=== PATIENT | female | born 1940 | race Caucasian/White ===

== ENCOUNTER 2021-05-03 07:41 | Observation (INO) ==
--- NOTE | 2021-04-19 09:36 | PAT Medication Instructions ---
Medication Instructions Date of Service April 19, 2021 Home Medications L.acid-L.casei-B.bif-B.carolyn-FOS [Probiotic Blend] 1 cap PO QAM cholecalciferol (vitamin D3) [Vitamin D3] 25 mcg PO QAM cyanocobalamin (vitamin B-12) [Vitamin B-12] 1,000 mcg PO QAM levothyroxine 137 mcg PO QAM multivitamin 1 tab PO QAM omega-3 fatty acids [Fish Oil] 1,000 mg PO QAM vitamin E 400 unit PO QAM STOP taking 2 weeks before surgery (or as soon as possible if surgery is within 2 weeks) omega-3 fatty acids [Fish Oil] 1,000 mg PO QAM vitamin E 400 unit PO QAM DO NOT take the morning of surgery L.acid-L.casei-B.bif-B.carolyn-FOS [Probiotic Blend] 1 cap PO QAM cholecalciferol (vitamin D3) [Vitamin D3] 25 mcg PO QAM cyanocobalamin (vitamin B-12) [Vitamin B-12] 1,000 mcg PO QAM multivitamin 1 tab PO QAM Take morning of surgery With a small sip of water, OTHERWISE NOTHING TO EAT OR DRINK AFTER MIDNIGHT: levothyroxine 137 mcg PO QAM Other Notes If you have any questions please call us at [phone] or [phone] or [phone] or [phone]
--- NOTE | 2021-04-21 13:14 | Anesthesiology Consultation ---
Date of Service April 21, 2021 Assessment & Plan (1) Encounter for pre-operative examination: COVID screening: Per assessment on 04/21: Travel screen negative, no known COVID- 19 positive contacts or current COVID-19 related symptoms. Surgeon arranging preop COVID testing. Awaiting results. Patient not vaccinated and does not wear mask in public > will order cepheid for AM DOS. Chart Review Chart Review: Acceptable Risk for Surgery and Patient seen in Pre Admission Testing Teaching & Discussion Pre-Anesthesia Teaching/Discussion Notes: Instructed NPO after midnight before surgery,except medications with 15 cc of water. Medication instructions provided according to the PAT guidelines. History Surgery Operation Date: 05/03/21 08:50 Proposed Procedures p Left Total Knee Arthroplasty - Jasiel Chandler MD Height/Weight Height: 5 ft 4 in Weight: 86.4 kg Allergies Allergy/AdvReac Type Severity Reaction Status Date / Time soy Allergy Intermediate Diffuse Verified 04/19/21 09:36 rash Sulfa (Sulfonamide Allergy Unknown Unknown Verified 04/18/21 15:42 Antibiotics) Medications Home Medications Medication Instructions Recorded Confirmed Last Taken L.acidophil-L.casei-B.bifid-B.longum-FOS 1 cap PO QAM 04/18/21 04/18/21 Unknown 2 billion cell-50 mg capsule (Probiotic Blend) cholecalciferol (vitamin D3) 25 25 mcg PO QAM 04/18/21 04/18/21 Unknown mcg (1,000 unit) tablet (Vitamin D3) cyanocobalamin (vitamin B-12) 1,000 mcg PO QAM 04/18/21 04/18/21 Unknown 1,000 mcg tablet (Vitamin B-12) levothyroxine 137 mcg tablet 137 mcg PO QAM 04/18/21 04/18/21 Unknown multivitamin 1 tab PO QAM 04/18/21 04/18/21 Unknown omega-3 fatty acids 1,000 mg PO QAM 04/18/21 04/18/21 Unknown vitamin E 400 unit tablet 400 unit PO QAM 04/18/21 04/18/21 Unknown Past Medical History Medical History Hypothyroidism Exercise / Class Metabolic Activity II 4-5 Yardwork/Stairs/Walk up hill (one FS (no CP, no SOB)) Past Family History Family History Other No family history of adverse response to anesthesia Past Surgical History Surgical History History of bilateral cataract extraction History of breast biopsy Benign History of section x2 History of tooth extraction History of total left hip replacement Past Anesthesia History No Family Hx of Anesthesia Complications and Other (Pain with epidural/spinal placement for previous ) History of PONV No Hx of PONV and No Hx of Motion Sickness Social History Smoking Status: Never smoker Do You Dip or Chew Tobacco: No Hx Alcohol Use: No Hx Substance Use: No substance use type: does not use Review of Systems Patient denies chest pain, shortness of breath, dyspnea on exertion, fever, chills, cough, wheezing, palpitations. Physical Exam Vital Signs VITALS BP 130/78 P 75 TEMP 98.4 SP02 94%RA RESP 16 PHYSICAL Full cervical extension range of motion. Full TMJ range of motion. TMD 3 finger breaths Mallampati Score 2 Dentition: upper/lower partials Lungs: clear throughout to auscultation Cardiac: regular rate and rhythm, no murmurs noted Spine: normal Carotid arteries: negative bruit Extremities: no edema Lab Results Anesthesia Preop Results Results Anesthesia Widget: 2 WBC 9.31 K/uL (4.8-10.8) 04/21/21 Hgb 13.5 g/dL (12.0-16.0) 04/21/21 Hct 40.7 % (37-47) 04/21/21 Plt 374 K/uL (130-400) 04/21/21 Na 141 mmol/L (136-145) 04/21/21 K 4.1 mmol/L (3.5-5.1) 04/21/21 Cl 108 mmol/L (98-107) H 04/21/21 CO2 28 mmol/L (21-32) 04/21/21 BUN 15 mg/dl (7-18) 04/21/21 Creat 0.57 mg/dl (0.6-1.2) L 04/21/21 Glucose Level 92 mg/dl (70-99) 04/21/21 PT 10.3 Seconds (9.0-12.0) 04/21/21 PTT 24.2 Seconds (21.0-31.0) 04/21/21 INR 1.0 (0.9-1.1) 04/21/21 Blood Type O Negative 04/21/21 Antibody Screen NEGATIVE 04/21/21 Testing Electrocardiogram Date: 04/21/21 SR with first degree AVB at 75bpm. Otherwise normal ECG. No significant change compared to 06/05/2011 per inspector plumbing review. Chest X-Ray Date: 04/21/21 FINDINGS: Cardiac silhouette is upper limits of normal in size. No pneumothorax, pleural effusion, airspace consolidation or overt pulmonary edema. Degenerative changes of the shoulders and spine. Nipple shadow projects over the right lung base. Mild mid thoracic dextroscoliosis. IMPRESSION: No acute process.
[~2021-05-03 07:41] MED LIST: ACETAMINOPHEN 500 MG TAB PO SCH; BUPIVACAINE 0.25% 30 ML VIAL ONE; BUPIVACAINE 0.5 % 5 MG/1 ML PF 10ML VIAL ONE; BUPIVACAINE LIPOSOME/PF 266 MG, BUPIVACAINE/EPINEPHRINE 50 ML, SODIUM CHLORIDE 0.9% 30 ... INFIL SCH; FAMOTIDINE 20 MG TAB PO SCH; GABAPENTIN 300 MG CAP PO SCH; LR 500ML BOLUS, THEN 15ML/HR IV SCH; LR 60ML/HR IV SCH; METOCLOPRAMIDE HCL 10 MG TABLET PO SCH; TRANEXAMIC ACID 1,000 MG **IV Intra-op IV SCH; ceFAZolin 2000MG 2,000 MG/15 ML SYR IV SCH
--- NOTE | 2021-05-03 07:47 | History & Physical Bridge Note ---
Date of Service May 03, 2021 History & Physical Bridge Note I have examined the patient, reviewed the History & Physical and in the interval since the performance of the History & Physical I have noted the following changes of clinical significance: no changes noted
[2021-05-03] MEDS ORDERED: MIDAZOLAM HCL 1 MG/ML 2ML VIAL ONE (07:51)
[2021-05-03] MEDS ORDERED: fentaNYL citrate 100 MCG/2 ML VIAL ONE (07:52)
[2021-05-03] MEDS ORDERED: ePHEDrine sulfate 50 MG/ML AMP IV PRN (09:20)
[2021-05-03] MEDS ORDERED: ONDANSETRON INJ 2 MG/ML 2 ML VIAL IV PRN ×2 (09:20→14:54)
[2021-05-03] MEDS ORDERED: ATROPINE SULFATE 0.1 MG/ML 10ML SYR IV PRN (09:20)
[2021-05-03] MEDS ORDERED: BUPIVACAINE 0.25% 30 ML VIAL ONE (10:05)
[2021-05-03] MEDS ORDERED: LIDOCAINE 2% 2 ML VIAL/AMP(20MG/ML) INFIL ONE (10:05)
[2021-05-03] MEDS ORDERED: SODIUM CHLORIDE 0.9% PF 50 ML VIAL ONE (10:05)
[2021-05-03] MEDS ORDERED: EPINEPHrine INJ 1 MG/ML AMP ONE (10:05)
[2021-05-03] MEDS ORDERED: PROPOFOL IV EMULSION 10 MG/ML 20 ML VIAL IV ONE (10:05)
[2021-05-03] MEDS ORDERED: BUPIVACAINE LIPOSOME 1.3% 266 MG/20 ML VIAL ONE (10:05)
[2021-05-03] MEDS ORDERED: ONDANSETRON INJ 2 MG/ML 2 ML VIAL ONE (10:05)
[2021-05-03] MEDS ORDERED: ePHEDrine sulfate 50 MG/ML AMP ONE (10:34)
[2021-05-03] MEDS ORDERED: PHENYLEPHRINE 100MCG/ML 5ML SYR ONE (10:54)
--- NOTE | 2021-05-03 12:27 | Operative Report ---
Post Operative Report Pre & Post Diagnosis Operation Date: 05/03/21 09:40 Pre-Op Diagnosis: Left Knee Osteoarthritits, Left Knee Pain Post-Op Diagnosis: Left Knee Osteoarthritits, Left Knee Pain I identified the patient and participated in the time-out.: Yes Procedure Operation Date: 05/03/21 09:40 Actual Procedures p Left Total Knee Arthroplasty, Cemented(Left) - Jasiel Chandler MD Surgeon Jasiel Chandler MD Matrix Worker GAL Hooper Estimated Blood Loss 50 Findings Consistent with Post-Op Diagnosis Operative findings were advanced left knee DJD. She had a grade 4 [id number] disease in all 3 compartments. She had varus deformity to the knee. Osteophytes in all 3 compartments. Moderate-sized knee effusion. Some diffuse osteopenia. Fluids 1200 cc Specimens Left knee sent for pathology. Drains None. Anesthesia Type Spinal MAC Complications none Disposition Accompanied Patient To Recovery: No Indications Patient is 80-year-old female is had a several year history of increasing bilateral knee pain discomfort. The left knee has been bothering more than the right patient been through extensive conservative treatment provided elsewhere. She elected proceed with total knee arthroplasty on the left side as this 1 was more symptomatic. Description of Procedure Operative implants consist of: 1. Biomet Vanguard size 65 left posterior stabilized femoral component. 2. Biomet size 71 tibial tray. 3. 14 mm posterior stabilized polyethylene insert. 4. 28 x 8 all polypatella. The patient was taken the operating, identified, placed on the operating table supine position but a contractors were properly padded. IV antibiotics tried by anesthesia team. A spinal anesthetic and abductor canal block had provided in the holding area. Melgar catheter was placed in sterile fashion. A left thigh- high tourniquet was then placed in the left lower extremities and prepped and draped in usual sterile fashion. The left leg was elevated exsanguinated with use of an Esmarch and turns placed at 300 mmHg. An anterior approach left knee was then performed to longitudinal incision centered over the patella. Sharp dissection got through subcutaneous is down below the extensor mechanism. A medial parapatellar arthrotomy incision was made. Some subperiosteal dissection was carried out medially but the fat pad was resected from each patella tendon. Lateral patellofemoral ligament was released. Patella subluxated laterally and the knee was flexed. The osteophytes taken off distal femur. The ACL and PCL were then released from distal femur the tibia subluxated anteriorly. External tibial alignment jig was then placed in the interface the tibia and adjusted 14 mm medially. Proximal tibial cut was made remove about 2 to 3 mm of bone from most efficient aspect medial tibial plateau. This did take a fairly large piece off laterally. Some osteophytes were taken off medial and posterior medially. The tibia sized to a size 71. Attention drawn the femur. The distal femur during the sharp drill bit intramedullary canal was suction. A left 5 degree valgus cutting guide was placed. The distal femoral cutting block was pinned in place. Distal femoral cut was made to take an additional 3 mm of bone off distal femur. Femur was then sized to a size 65. The AP cutting block was pinned parallel to the epicondylar axis which was 5 degrees of external rotation. The anterior cut, anterior chamfer, posterior cut, posterior chamfer cuts were made. The box cutting guide was placed in just slight lateral box cut was made. The knee was flexed. The remnants of the medial and lateral menisci were excised. The osteophytes were taken off the posterior aspect of the femur. Trial femoral component was placed through the tibial tray was pinned in maximum external rotation and the drill and stem punch used to create defect in proximal tibia for the tibial tray. Knee was then trialed and the 14 mm insert fit most appropriately. Attention drawn the patella. Patella was cleaned of all soft tissues. Patella thickness measured 20 mm in thickness cut down 13. Was sized to a size 28 patella. The lug holes were drilled for the 28 patella. The lateral osteophyte was removed. Patella button was placed. The knee was taken through range of motion and the patella tracked nicely with no thumbs test. Attention was then drawn toward placing the permanent components. All trial components were removed. Bone plug was placed in the distal femur limit blood loss put a double batch Palacos G cement was mixed. A Biomet Vanguard size 65 left posterior stabilized femoral component, size 71 tibial tray, a 14 mm posterior stabilized polyethylene insert, and a 28 x 8 all polypatella then cemented in place. Knee was brought out in full extension total cement hardened. Final cement check was then performed. Pericapsular tis sues were injected with total 100 cc of combination of 20 cc of Exparel, 30 cc normal saline, 50 cc of quarter percent Marcaine with epinephrine. Patient did receive 1 g tranexamic acid per the turn was then let down for final turn time 60 minutes. Hemostasis assured use electrocautery. The wound was once again irrigated. The extensor mechanism was then repaired with a combination #1 PDS and #1 Vicryl suture in [id number] fashion. Extensor mechanism checked found to be intact with subcutaneous tissue then closed with 2 Dexon suture in a buried fashion skin was closed skin marilyn. Legs then cleaned dried and sterile dressing was Xeroform, 4 x 4's, sterile cast padding, Harrison bandage were applied. Patient then transferred to the recovery room in stable condition. Patient tolerated procedure well and there were no complications. Canelo Hooper, my physician food and nutrition services assistant, was present for the entire procedure. His assistance was essential and required for appropriate patient positioning, prepping and draping, surgical exposure, performing the technical details of the operation, placement the implants, closure of the wound, and placement of the sterile bandage. I attest to the content of the Intraoperative Record and any orders documented therein. Any exceptions are noted below.
--- NOTE | 2021-05-03 13:05 | XRay Report ---
LEFT KNEE 2 VIEWS History: Left total knee arthroplasty. Degenerative arthritis. Postop. FINDINGS: The patient is status post a left total knee arthroplasty. The hardware is intact. No fract ure or dislocation. Skin marilyn are in place. IMPRESSION: Left total knee arthroplasty. No evidence for hardware complication. ACT 112: Negative or not required by law. Electronically signed by: Matt Méndez M.D. 05/03/2021 1:04 PM
--- NOTE | 2021-05-03 13:51 | Anesthesiology Progress Note ---
Date of Service May 03, 2021 Anesthesia Post Procedure Vital Signs Vital Signs: Temp Pulse Pulse Resp BP BP Pulse Ox 05/03/21 13:40 70 14 99/48 L 95 05/03/21 13:25 71 14 105/46 L 95 05/03/21 13:10 36.4 C L 71 14 108/47 L 94 05/03/21 12:55 36.4 C L 70 16 105/48 L 94 05/03/21 12:45 36.4 C L 70 18 110/48 L 96 05/03/21 12:35 66 15 104/47 L 97 05/03/21 12:25 72 15 103/46 L 95 05/03/21 12:16 36.8 C 72 16 102/45 L 99 05/03/21 08:29 36.7 C 73 18 137/73 96 Pain Intensity Left Knee: Pain Intensity: 3 Transfer of Care Handoff Completed per policy Notes Mental Status: alert / awake / arousable and participated in evaluation Patient Amnestic to Procedure: Yes Nausea / Vomiting: adequately controlled Pain: adequately controlled Airway Patency, RR, SpO2: stable & adequate BP & HR: stable & adequate Hydration State: stable & adequate Neuraxial Anesthesia: was administered and sensory block is resolving Anesthetic Complications: no major complications apparent and Pt Satisfied with anesthetic care
[2021-05-03] MEDS ORDERED: HYDROmorphone INJ 0.5 MG/0.5 ML SYR IV PRN (14:54)
[2021-05-03] MEDS ORDERED: MAGNESIUM HYDROXIDE SUSP 30 ML UDC PO PRN (14:54)
[2021-05-03] MEDS ORDERED: METOCLOPRAMIDE HCL INJ 5 MG/ML 2 ML VIAL IV PRN (14:54)
[2021-05-03] MEDS ORDERED: bisacodyL 10 MG SUPP PR PRN (14:54)
[2021-05-03] MEDS ORDERED: NALOXONE HCL 0.4 MG/1 ML VIAL/CARP IV PRN (14:54)
[2021-05-03] MEDS ORDERED: traMADol HCL 50 MG TABLET PO PRN (14:54)
[2021-05-03] MEDS ORDERED: ALUMINUM/MAGNESIUM SUSP 30 ML UDC PO PRN (14:54)
[2021-05-03] MEDS: ACETAMINOPHEN 500 MG TAB PO SCH ×2 (15:50→22:03)
[2021-05-03] MEDS: SODIUM CHLORIDE 0.9% 1000ML 1,000 ML IV SCH (15:51)
[2021-05-03] MEDS: ASCORBIC ACID 500 MG TAB PO SCH (17:46)
[2021-05-03] MEDS: ceFAZolin 2000MG 2,000 MG/15 ML SYR IV SCH (17:47)
[2021-05-03] MEDS: KETOROLAC TROMETHAMINE 15 MG/ML VIAL IV SCH ×2 (17:47→22:03)
[2021-05-03] MEDS ORDERED: TRANEXAMIC ACID / 0.7% NACL 1,000 MG/100 ML BAG IV SCH (18:15)
--- NOTE | 2021-05-03 20:28 | Progress Notes ---
DATE OF SERVICE: 05/03/2021 SUBJECTIVE: A 80-year-old white female postop from a left knee replacement. She is doing well. [place] n is controlled. No chest pain or shortness of breath. Not feeling dizzy or lightheaded. OBJECTIVE: VITAL SIGNS: Temperature 36.3. Vital signs are stable. PHYSICAL EXAMINATION: GENERAL: Shows a pleasant elderly female. She is sitting up in bed, eating dinner and talking to he r . LUNGS: Clear to auscultation. HEART: Regular rate and rhythm. ABDOMEN: Soft, nontender, nondistended. EXTREMITIES: Grossly neurovascularly intact except as follows: Examination of the left knee and leg reveals the dressing to be clean, dry and intact. Leg is well aligned. She can dorsiflex and plant arflex her foot appropriately. NEUROLOGIC: She is neurologically intact. X-RAYS: X-rays of the left knee from recovery room are reviewed. She has a left cemented posterior s tabilized total knee arthroplasty. Components looked to be in good position. No signs of problems. ASSESSMENT: A 80-year-old white female postoperative from a left knee replacement, doing well. Pain is controlled. She is neurologically intact. PLAN: 1. DVT prophylaxis includes thigh-high TEDs, SCDs, and aspirin twice a day. 2. PT, OT, weightbear as tolerated. Left total knee protocol. 3. Pain control, doing well with current pain regimen. 4. IV antibiotics x24 hours. 5. Disposition: Plan to discharge to home with some home health likely tomorrow after morning therap y. Job ID: [id number]
[2021-05-03] MEDS: ASPIRIN 81 MG ECTAB PO SCH (20:33)
[2021-05-03] MEDS: DOCUSATE SODIUM 100 MG CAP PO SCH (20:34)
[2021-05-03] MEDS ORDERED: SENNA 8.6 MG TAB PO SCH (21:00)
[2021-05-04] MEDS: SODIUM CHLORIDE 0.9% 1000ML 1,000 ML IV SCH (01:30)
[2021-05-04] MEDS: ceFAZolin 2000MG 2,000 MG/15 ML SYR IV SCH (02:52)
[2021-05-04] MEDS: KETOROLAC TROMETHAMINE 15 MG/ML VIAL IV SCH ×2 (05:13→11:42)
[2021-05-04] MEDS: ACETAMINOPHEN 500 MG TAB PO SCH ×2 (05:14→14:48)
[2021-05-04 06:30] LABS: Hematocrit (blood only) 35.6 % (37-47); Hemoglobin 11.6 g/dL (12.0-16.0); Mean Corpuscular Hemoglobin 30.5 pg (25-34); Mean Corpuscular Hgb Conc 32.6 g/dL (32-36); Mean Corpuscular Volume 93.7 fL (80-100); Mean Platelet Volume 10.9 fL (7.4-10.4); Platelet Count 271 K/uL (130-400); RDW Coefficient of Variation 12.5 % (11.5-14.5); RDW Standard Deviation 42.6 fL (36.4-46.3); White Blood Count 10.77 K/uL (4.8-10.8)
[2021-05-04] MEDS ORDERED: LEVOTHYROXINE SODIUM 137 MCG TABLET PO SCH (06:30)
[2021-05-04 07:04] LABS: BUN Creatinine Ratio 23.2 (10-20); Calcium 8.4 mg/dl (8.5-10.1); Est GFR (African American) 102.2 ml/min; Est GFR (Non-African American) 88.2 ml/min; Potassium 4.6 mmol/L (3.5-5.1)
[2021-05-04] MEDS: DOCUSATE SODIUM 100 MG CAP PO SCH (08:37)
[2021-05-04] MEDS: ASPIRIN 81 MG ECTAB PO SCH (08:37)
[2021-05-04] MEDS: ASCORBIC ACID 500 MG TAB PO SCH (08:38)
[2021-05-04] MEDS: dexAMETHasone 10 MG in SYRINGE 0 ML IV SCH ×2 (08:38→08:46)
--- NOTE | 2021-05-04 08:39 | Progress Notes ---
DATE OF SERVICE: 05/04/2021. SUBJECTIVE: A 80-year-old white female postop day 1 from a left knee replacement. She is doing pret ty well. Had a pretty good night. Pain is reasonably well controlled. No chest pain or shortness o f breath. Not feeling dizzy or lightheaded. OBJECTIVE: VITAL SIGNS: Temperature is 36.4. Vital signs are stable. PHYSICAL EXAMINATION: GENERAL: A pleasant elderly female. She is sitting up on bed and looks pretty comfortable. EXTREMITIES: Examination of the left leg reveals the dressing to be clean, dry and intact. Patient dorsiflex and plantarflex her foot appropriately. She is neurologically intact. LABORATORY DATA: Hemoglobin 11.6. Hematocrit 35.6. Electrolytes are stable. ASSESSMENT: A 80-year-old female postoperative day 1 from left knee replacement, doing pretty well. Pain is controlled. She is neurologically intact. PLAN: 1. DVT prophylaxis include thigh-high TEDs, SCDs, and aspirin twice a day. 2. PT, OT, weightbear as tolerated. Left total knee protocol. 3. Pain control, doing pretty well with current pain regimen. 4. Disposition: Plan to discharge to home with some home health likely later today. Job ID: [id number]
[2021-05-04] MEDS ORDERED: OMEGA-3 (PURIFIED FISH OIL) 1 GM CAP PO SCH (09:00)
[2021-05-04] MEDS ORDERED: CYANOCOBALAMIN 500 MCG TABLET (VITAMIN B-12) PO SCH (09:00)
[2021-05-04] MEDS ORDERED: TOCOPHERYL, DL-ALPHA 400 UNITS 180 MG CAP PO SCH (09:00)
[2021-05-04] MEDS ORDERED: ADVANCED PROBIOTIC 1250 MG CAPSULE PO SCH (09:00)
[2021-05-04] MEDS ORDERED: MULTIVITAMIN TAB PO SCH ×2 (09:00)
[2021-05-04] MEDS ORDERED: CHOLECALCIFEROL 1,000 UNITS 25 MCG TAB PO SCH (09:00)
--- NOTE | 2021-05-10 06:28 | Discharge Summary ---
Date of Service May 10, 2021 Discharge Data Procedures Performed Operation Date: 05/03/21 09:40 Actual Procedures p Left Total Knee Arthroplasty, Cemented(Left) - Jasiel Chandler MD Hospital Course (1) Status post total left knee replacement: This is a 80 year old patient admitted on 05/03/21 and underwent total knee arthroplasty. She tolerated the procedure well and there were no complications. Transferred to the PACU post op and later to the orthopedic floor for further care. She was given ancef for antibiotic prophylaxis. She was also given LUIS stockings, SCDs, and aspirin for DVT prophylaxis. Hemoglobin, hematocrit, and vital signs were monitored during her hospital stay and remained stable. Did not require any blood transfusions. There were no complications during her hospital stay. By post op day #1 the patient was tolerating a regular diet, pain was reasonably controlled with oral pain medicine, and she was participating in physical therapy. On post op day #1 the patient was discharged home and set up with home health care. She was given printed discharge instructions including prescriptions for extra strength tylenol, aspirin, and tramadol. Continue physical therapy, weight bearing as tolerated. Continue LUIS stockings. Follow up approximately 2 weeks post op or sooner if there are problems or concerns. Coding Level of Care Code None Diagnoses Status post total left knee replacement Z96.652
== END 2021-05-04 16:18 | disposition home health service (06) ==
LOC: ASU 07:41 → 3E 07:41

== ENCOUNTER 2022-04-18 08:55 | Observation (INO) ==
--- NOTE | 2022-04-07 08:32 | History & Physical Report ---
Date of Service April 07, 2022 date of surgery: 04/18/22 Procedure: Right Total Knee Arthroplasty Surgeon: Jason Perez Assessment & Plan (1) Arthritis of right knee: Plan: Further care discussed with patient and at this point in time has failed conservative measures and would like to proceed with a right total knee replacement. Plan on discharge will be home with home health physical therapy. DVT prophylaxiswith TEDs, SCDs and will also place on aspirin 81 mg p.o. b.i.d. for a month postop. Patient will have follow up appointment in our office two weeks post op for staple/suture removal and re-evaluation. Patient otherwise has no other questions or concerns. The risks and benefits have been discussed including, but not limited to, risk of infection, nerve injury, stiffness, loss of motion, failure to improve, etc. Reasonable outcomes and options of treatment were discussed. An explanation of appropriate alternatives to the procedure that may be advantageous were discussed and their risks and benefits, as well as the risks and benefits of not proceeding with treatment. I offered to answer any additional inquiries concerning the treatment involved. All the patient's questions were answered. The patient is agreeable, understanding of the treatment plan and alternatives, and wishes to proceed with the treatment plan. History of Present Illness Chief Complaint: Right knee pain Primary Care Provider: Jasiel Hu is a 81 year old female who complains of right knee pain, presents for pre-op evaluation prior to a right total knee replacement by Dr Perez at [facility]. she has complaints of pain and stiffness in the right knee. her left knee has been replaced by Dr Chandler. currently the patient states that the symptoms are moderate-severe and is affecting her ADLs. The pain is described as aching, sharp and throbbing. Her symptoms are aggravated by ascending stairs, daily activities, first steps while awake walking. Prior NSAIDs include IBU and Aleve. she has been treated with injections in the past without much relief. Allergies Allergy/AdvReac Type Severity Reaction Status Date / Time soy Allergy Intermediate Diffuse Verified 04/06/22 16:22 rash Sulfa (Sulfonamide Allergy Unknown Unknown Verified 04/06/22 16:22 Antibiotics) Home Medications Medication Instructions Recorded Confirmed Type L.acidophil-L.casei-B.bifid-B.longum-FOS 1 cap PO QAM 04/18/21 04/06/22 History 2 billion cell-50 mg capsule (Probiotic Blend) cholecalciferol (vitamin D3) 25 25 mcg PO QAM 04/18/21 04/06/22 History mcg (1,000 unit) tablet (Vitamin D3) cyanocobalamin (vitamin B-12) 1,000 mcg PO QAM 04/18/21 04/06/22 History 1,000 mcg tablet (Vitamin B-12) levothyroxine 137 mcg tablet 137 mcg PO QAM 04/18/21 04/06/22 History multivitamin 1 tab PO QAM 04/18/21 04/06/22 History omega-3 fatty acids 1,000 mg PO QAM 04/18/21 04/06/22 History vitamin E 400 unit tablet 400 unit PO QAM 04/18/21 04/06/22 History Arturo Manjarrez #1 ea 05/19/21 04/06/22 Rx Past Med/Surg History Medical History Hypothyroidism Osteoarthritis Surgical History History of bilateral cataract extraction History of breast biopsy Benign History of section x2 History of tooth extraction History of total left hip replacement History of total left knee replacement (TKR) Family History Other No family history of adverse response to anesthesia Social History Smoking Status: Never smoker Second Hand Exposure: No; Hx Alcohol Use: No Hx Substance Use: No Preferred Language: Malay Communication Ability: Effective Robotics Engineer Required: No Beliefs That Will Affect Care: None marital status: Current Living Situation: Spouse Feels Safe at Home: Yes Assistive Devices: Denture - Upper, Denture - Lower and Glasses Review of Systems Review of Systems: All systems reviewed & are unremarkable except as noted in HPI & below Constitutional: no fever, no chills and no sweats Respiratory: no cough and no dyspnea Cardiovascular: no chest pain, no dyspnea and no orthopnea Gastrointestinal: no abdominal pain, no nausea and no vomiting Musculoskeletal: as per Subjective / HPI Physical Exam Physical Exam: HT: 5ft 4in WT: 77.1kg Constitutional: WD/WN, vitals as above no acute distress Respiratory: normal respiratory effort, lungs clear to auscultation no respiratory distress, no labored breathing and does not use accessory muscles Cardiovascular: RRR, no murmur, no edema Gastrointestinal (Abdomen): normal bowel sounds, soft, nontender, no hepatospl enomegaly Musculoskeletal: Knee: + knee abnormal to inspection (RIGHT KNEE), + effusion (+1 effusion), + limited ROM of knee (ROM 0/3/110), + knee ROM with crepitation, + joint line tenderness (medial joint line) and + Epifanio's sign positive; no deformity, no skin erythema, no ecchymosis, no valgus laxity, no varus laxity, anterior drawer test negative, Celeste's sign negative and pivot shift test negative Results & Data Results & Data ([facility]) Diagnostic Findings Right Knee X-ray: Right knee series showing advanced degenerative changes to the right knee, narrowing of the medial compartment and patello-femoral joint with patellar spurring noted, findings showing joint space narrowing of the medial compartment and patello-femoral joint, osteophyte formation and subchondral sclerosis noted. overall varus alignment. no acute bony pathology noted.
--- NOTE | 2022-04-07 09:35 | PAT Medication Instructions ---
Medication Instructions Date of Service April 07, 2022 Home Medications Medication Instructions Recorded Arturo Manjarrez #1 ea 05/19/21 L.acidophil-L.casei-B.bifid-B.longum-FOS 2 billion cell-50 mg capsule (Probiotic Blend) 1 cap PO QAM cholecalciferol (vitamin D3) 25 mcg (1,000 unit) tablet (Vitamin D3) 25 mcg PO QAM cyanocobalamin (vitamin B-12) 1,000 mcg tablet (Vitamin B-12) 1,000 mcg PO QAM levothyroxine 137 mcg tablet 137 mcg PO QAM multivitamin 1 tab PO QAM omega-3 fatty acids 1,000 mg PO QAM vitamin E 400 unit tablet 400 unit PO QAM STOP taking 2 weeks before surgery (or as soon as possible if surgery is within 2 weeks) omega-3 fatty acids 1,000 mg PO QAM vitamin E 400 unit tablet 400 unit PO QAM DO NOT take the morning of surgery L.acidophil-L.casei-B.bifid-B.longum-FOS 2 billion cell-50 mg capsule (Probiotic Blend) 1 cap PO QAM cholecalciferol (vitamin D3) 25 mcg (1,000 unit) tablet (Vitamin D3) 25 mcg PO QAM cyanocobalamin (vitamin B-12) 1,000 mcg tablet (Vitamin B-12) 1,000 mcg PO QAM multivitamin 1 tab PO QAM Take morning of surgery With a small sip of water, OTHERWISE NOTHING TO EAT OR DRINK AFTER MIDNIGHT: levothyroxine 137 mcg tablet 137 mcg PO QAM Other Notes If you have any questions please call us at [phone] or [phone] or [phone] or [phone]
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
[~2022-04-18 08:55] MED LIST changes: -BUPIVACAINE 0.25% 30 ML VIAL ONE; -BUPIVACAINE LIPOSOME/PF 266 MG, BUPIVACAINE/EPINEPHRINE 50 ML, SODIUM CHLORIDE 0.9% 30 ... INFIL SCH; +CeleBREX 200 MG CAP PO SCH; -LR 60ML/HR IV SCH; +ROPIVACAINE 0.5% 5 MG/ML 30 ML VIAL ONE; +ROPIVACAINE 0.5% HCL/PF 150 MG, BUPIVACAINE 0.75% MPF 20 ML, EPINEPHrine 30MG/30ML (OR ... INFIL SCH; +TRANEXAMIC ACID 1,000 MG **IV Pre-op IV SCH; +dexAMETHasone 4 MG TAB PO SCH
[2022-04-18] MEDS ORDERED: PHENYLEPHRINE 100MCG/ML 5ML SYR ONE (09:54)
[2022-04-18] MEDS ORDERED: ePHEDrine sulfate 50 MG/ML AMP ONE (09:54)
[2022-04-18] MEDS ORDERED: LIDOCAINE 2% MPF LOCAL 5 ML VIAL INFIL ONE (09:54)
[2022-04-18] MEDS ORDERED: MIDAZOLAM HCL 1 MG/ML 2ML VIAL ONE (09:54)
[2022-04-18] MEDS ORDERED: fentaNYL citrate 100 MCG/2 ML VIAL ONE (09:54)
[2022-04-18] MEDS ORDERED: PROPOFOL IV EMULSION 10 MG/ML 20 ML VIAL IV ONE (09:54)
[2022-04-18] MEDS ORDERED: ATROPINE SULFATE 0.1 MG/ML 10ML SYR IV PRN (10:41)
[2022-04-18] MEDS ORDERED: ONDANSETRON INJ 2 MG/ML 2 ML VIAL IV PRN ×2 (10:41→16:10)
[2022-04-18] MEDS ORDERED: fentaNYL citrate 100 MCG/2 ML VIAL IV PRN (10:41)
[2022-04-18] MEDS ORDERED: ePHEDrine sulfate 50 MG/ML AMP IV PRN (10:41)
--- NOTE | 2022-04-18 10:53 | History & Physical Bridge Note ---
Date of Service April 18, 2022 History & Physical Bridge Note I have examined the patient, reviewed the History & Physical and in the interval since the performance of the History & Physical I have noted the following changes of clinical significance: no changes noted
[2022-04-18] MEDS ORDERED: ORTHO JOINT ANESTHETIC ONE (12:17)
--- NOTE | 2022-04-18 13:21 | Operative Report ---
Post Operative Report Pre & Post Diagnosis Operation Date: 04/18/22 11:30 Pre-Op Diagnosis: Unilateral Primary Osteoarthritis, Right Knee Post-Op Diagnosis: Unilateral Primary Osteoarthritis, Right Knee I identified the patient and participated in the time-out.: Yes Procedure Operation Date: 04/18/22 11:30 Actual Procedures p Right Total Knee Arthroplasty(Right utilizing [employer] 2 long block total knee arthroplasty size femur 5 right 4 tibia 10 polytwenty 9 oval patella - Jason Perez DO Surgeon Jason Perez DO [employer] Technician Jose Manuel RAZA Estimated Blood Loss 5 Findings Consistent with Post-Op Diagnosis Patient presents with severe end-stage tricompartmental degenerative joint disease right knee varus alignment with [id number] eburnated bone marginal osteophyte subchondral sclerosis and moderate to large effusion Specimens Bone and cartilage Drains Medium bore Hemovac Anesthesia Type MAC Spinal Regional Complications none Disposition Accompanied Patient To Recovery: No Disposition: Recovery Room Indications Patient presents for right total knee arthroplasty for failed attempted conservative management physical therapy anti-inflammatories relative rest activity modification corticosteroid injection viscosupplementation above intraoperative findings were noted. Description of Procedure After proper prepping and draping of the Right lower extremity anterior midline incision was made over the region of the extensor extensor mechanism after meticulous hemostasis was obtained and maintained in subcutaneous tissues a medial parapatellar incision was made The patella was subluxed lateralward the medial lateral gutter were cleaned from any hypertrophic synovitis and scar tissue of the distal femoral block was placed and the distal femoral osteotomy cut was made subsequently the chamfers anterior and posterior osteotomy cuts were made utilizing the 4-in-1 block the tibia was subsequently subluxed anteriorward medial and ateral meniscal remnants were excised in their entirety remnants of the anterior and posterior cruciate ligaments were excised in their entirety excellent exposure of the proximal tibia was obtained the tibial osteotomy guide was placed on the proximal tibial osteotomy cut was made once again the knee was irrigated with copious amounts of sterile saline solution the patella was subsequently everted lateralward thickened scar tissue around the patella was removed the patella was subsequently cut utilizing a freehand technique and was drilled prepared for final preparation and placement of patella socially flexion-extension gaps were checked and the equal and symmetric trials were placed to the appropriate femoral and tibial trials with poly-spacer being placed for equal flexion and extension gaps and full range of motion including extension to 0 and flexion to 140 the trial components after having been taken to recovery range of motion was subsequently removed meticulous hemostasis was obtained and maintained subsequently a knee block injection of joint cocktail including ropivacaine 0.5% 150 mg. Bupivacaine 0.5% epinephrine 1-200,030 mL's toradol 30 mg dexamethasone 4 mg ketamine 10 mg clonidine 100 micrograms normal saline solution 30 mg was infiltrated into the soft tissues of the posterior knee medial lateral gutters and periosteal synovium special attention was paid to protect neurovascular structures at all times subsequently trial components having been removed the knee was irrigated with sterile saline solution. debris was removed the proximal tibia was subsequently prepared and was made ready for the placement of the tibial component tibial component was also cemented and tamped into position the femoral component was subsequently placed and cemented in the position the patellar component was subsequently cemented in position because hemostasis once again obtained and maintained wound having been thoroughly irrigated with debridement and debridement lavage was performed as well as a medial parapatellar incision closed with #1 Vicryl in interrupted fashion subcutaneous was closed with #2 Vicryl skin was closed with skin clips. PA-C was necessary for prepping and drapping as well as wound closure of deep fascia Sub cutaneous tissue and skin and was necessary for the case. A sterile compressive dressing was placed patient was taken to recovery in stable condition of report dictated by Chris I attest to the content of the Intraoperative Record and any orders documented therein. Any exceptions are noted below.Due to the complex nature of the procedure, the entire surgery was performed with the operational assistance of Jose Manuel RAZA. The assistant counsel, under direct supervision, was involved in the actual performance of all aspects of the surgical procedure including hemostasis, tissue retraction and incision, instrument management, patient posit ioning, and wound closure. I attest to the content of the Intraoperative Record and any orders documented therein. Any exceptions are noted below.
--- NOTE | 2022-04-18 14:40 | XRay Report ---
XR knee RT 1 or 2V routine CLINICAL HISTORY: Surgical Post Op TECHNIQUE: 2 views of the right knee were obtained. Comparison: None available at the time of this dictation. FINDINGS: Patient is status post total knee arthroplasty with expected postsurgical changes including soft tiss ue swelling and subcutaneous emphysema. No periarticular lucency or hardware fracture is seen. IMPRESSION: Expected postoperative appearance status post placement of total knee arthroplasty. ACT 112: Negative or not required by law. Electronically signed by: Killian Milton M.D. 04/18/2022 2:38 PM
--- NOTE | 2022-04-18 15:12 | Anesthesiology Progress Note ---
Date of Service April 18, 2022 Anesthesia Post Procedure Vital Signs Vital Signs: Temp Pulse Pulse Resp BP Pulse Ox 04/18/22 15:00 36.6 C 69 13 97/51 L 95 04/18/22 14:50 36.6 C 71 15 105/62 96 04/18/22 14:40 36.6 C 70 20 109/51 L 95 04/18/22 14:30 68 13 107/50 L 98 04/18/22 14:20 68 13 101/52 L 97 04/18/22 14:10 36.7 C 68 18 105/57 L 98 04/18/22 14:02 36.7 C 73 16 103/50 L 96 04/18/22 09:44 36.5 C 74 20 133/73 96 Transfer of Care Handoff Completed per policy Notes Mental Status: alert / awake / arousable and participated in evaluation Patient Amnestic to Procedure: Yes Nausea / Vomiting: adequately controlled Pain: adequately controlled Airway Patency, RR, SpO2: stable & adequate BP & HR: stable & adequate Hydration State: stable & adequate Neuraxial Anesthesia: was administered and sensory block is resolving Anesthetic Complications: no major complications apparent and Pt Satisfied with anesthetic care Notes: BP prior to discharge 102/49. Patient feeling well with no complaints.
[2022-04-18] MEDS ORDERED: NALOXONE HCL 0.4 MG/1 ML VIAL/CARP IV PRN (16:10)
[2022-04-18] MEDS ORDERED: MAGNESIUM HYDROXIDE SUSP 30 ML UDC PO PRN (16:10)
[2022-04-18] MEDS ORDERED: HYDROmorphone INJ 0.5 MG/0.5 ML SYR IV PRN (16:10)
[2022-04-18] MEDS ORDERED: bisacodyL 10 MG SUPP PR PRN (16:10)
[2022-04-18] MEDS: SODIUM CHLORIDE 0.9% 1000ML 1,000 ML IV SCH (16:36)
[2022-04-18] MEDS: ceFAZolin 2000MG 2,000 MG/15 ML SYR IV SCH (20:11)
[2022-04-18] MEDS: ASPIRIN 81 MG ECTAB PO SCH (20:43)
[2022-04-18] MEDS: DOCUSATE SODIUM 100 MG CAP PO SCH (20:43)
[2022-04-18] MEDS ORDERED: SENNA 8.6 MG TAB PO SCH (21:00)
[2022-04-18] MEDS: ACETAMINOPHEN 500 MG TAB PO SCH (21:32)
[2022-04-19] MEDS: ceFAZolin 2000MG 2,000 MG/15 ML SYR IV SCH (04:40)
[2022-04-19] MEDS: SODIUM CHLORIDE 0.9% 1000ML 1,000 ML IV SCH (05:29)
[2022-04-19] MEDS: ACETAMINOPHEN 500 MG TAB PO SCH (06:00)
[2022-04-19] MEDS ORDERED: LEVOTHYROXINE SODIUM 137 MCG TABLET PO SCH (06:30)
[2022-04-19] MEDS ORDERED: CYANOCOBALAMIN (B-12) 500 MCG TABLET PO SCH (09:00)
[2022-04-19] MEDS ORDERED: CHOLECALCIFEROL 1,000 UNITS 25 MCG TAB PO SCH (09:00)
[2022-04-19] MEDS ORDERED: ADVANCED PROBIOTIC 1250 MG CAPSULE PO SCH (09:00)
[2022-04-19] MEDS ORDERED: TOCOPHERYL, DL-ALPHA 400 UNITS 180 MG CAP PO SCH (09:00)
[2022-04-19] MEDS ORDERED: MULTIVITAMIN TAB PO SCH (09:00)
[2022-04-19] MEDS: DOCUSATE SODIUM 100 MG CAP PO SCH (09:50)
[2022-04-19] MEDS: ASPIRIN 81 MG ECTAB PO SCH (09:50)
[2022-04-19] MEDS: oxyCODONE HCL IR 5 MG TAB (IMMEDIATE RELEASE) PO PRN ×2 (09:56→14:01)
--- NOTE | 2022-04-19 09:56 | Orthopedic Progress Note ---
Date of Service April 19, 2022 Assessment & Plan (1) Arthritis of right knee: Plan: POD 1 s/p Right TKA PT/OT protocols. WBAT. DVT prophylaxis - ASA po bid, SCD's, LUIS's Pain management as written. DC planning - Home with services. Admission and Anticipated Discharge Date Admission Date: April 18, 2022 Subjective POD 1 Pt sitting in chair at bedside. No complaints. Pain controlled. Denies SOB,CP,LH. She is hoping to go home today. Physical Exam Physical Exam: Dressings are C/D/I. Calves soft, NT. NV intact. Toes mobile. Good DF/PF of right foot. Hemovac drainage 190ml from previous shift. Results & Data ([facility]) Vital Signs (Past 12 Hours) Vital Signs Temp Pulse Resp BP BP Pulse Ox O2 Del Method 04/19/22 08:14 36.3 C L 58 L 16 129/63 95 Room Air 04/19/22 03:30 36.6 C 65 16 112/66 92 Room Air 04/18/22 23:10 36.7 C 67 16 129/71 94 Room Air
[2022-04-19 10:08] LABS: Hematocrit (blood only) 34.4 % (34.1-44.9); Hemoglobin 11.7 g/dl (12.0-16.0); Mean Corpuscular Hemoglobin 30.7 pg (25.0-34.0); Mean Corpuscular Volume 90.3 fL (80.0-100.0); Mean Platelet Volume 11.1 fL (9.4-12.3); Platelet Count 292 K/uL (130-400); RDW Coefficient of Variation 12.5 % (11.5-14.5); RDW Standard Deviation 41.1 fL (36.4-46.3); Red Blood Count 3.81 M/uL (3.93-5.22); White Blood Count 14.85 K/ul (4.8-10.8)
[2022-04-19 10:35] LABS: BUN Creatinine Ratio 27.4 (10-20); Creatinine Clr Calc Pharmacy 62.2 ml/min; Est GFR (African American) 90.2 ml/min; Est GFR (Non-African American) 77.8 ml/min; Potassium 4.1 mmol/L (3.5-5.1)
== END 2022-04-19 14:16 | disposition home health service (06) ==
LOC: ASU 08:55 → 3W 08:55

== ENCOUNTER 2025-09-21 11:26 | Inpatient (IN) ==
[2025-09-21 12:29] LABS: Hematocrit (blood only) 29.0 % (37.0-47.0); Hemoglobin 10.1 g/dL (12.0-16.0); Mean Corpuscular Hemoglobin 35.9 pg (25.0-34.0); Mean Corpuscular Volume 103.2 fL (80.0-100.0); Platelet Count 415 K/uL (130-400); RDW Standard Deviation 54.1 fL (36.4-46.3); Red Blood Count 2.81 M/uL (4.20-5.40); White Blood Count 11.77 K/ul (4.8-10.8)
[2025-09-21 12:44] LABS: Anion Gap 9 (3-11); Blood Urea Nitrogen 25 mg/dl (6-23); Calcium 9.2 mg/dl (8.6-10.3); Carbon Dioxide 25 mmol/L (21-32); Chloride 102 mmol/L (98-107); Creatinine Clr Calc Pharmacy 38.9 ml/min; Glucose 141 mg/dl (70-99(Fasting)); Potassium 3.8 mmol/L (3.5-5.1); Sodium 136 mmol/L (136-145)
[2025-09-21 12:47] LABS: Alanine Aminotransferase 38 U/L (7-52); Albumin Globulin Ratio 1.1 (0.9-2); Albumin Level 3.8 gm/dl (3.4-5.0); Alkaline Phosphatase 41 U/L (34-104); Bilirubin,Total 1.2 mg/dl (0.2-1.0); Globulin 3.5 gm/dl (2.5-4.0); Lipase < 3 U/L (11-82); Magnesium 2.1 mg/dl (1.7-2.4); Total Protein 7.3 gm/dl (6.0-8.3)
[2025-09-21 12:56] LABS: Immature Granulocytes # (auto) 0.35 K/uL (0.01-0.20); Immature Granulocytes % (auto) 3.0 %; Toxic Vacuolation 3+
[2025-09-21 12:59] LABS: Thyroid Stimulating Hormone 0.182 uIu/ml (0.300-4.500)
[2025-09-21] MEDS: CEFEPIME 2000MG 2,000 MG/20 ML SYR IV STA (13:06)
[2025-09-21 13:07] LABS: INR 1.2 (0.9-1.1); Prothrombin Time 12.5 Seconds (9.0-12.0)
--- NOTE | 2025-09-21 13:07 | XRay Report ---
RIGHT KNEE 2 VIEWS CLINICAL HISTORY: Trauma. FINDINGS: AP and crosstable lateral views of the right knee are compared to study dated 04/18/2022. Th e skeletal structures are osteopenic. No fracture is seen. A right knee arthroplasty is in near anato flor alignment. There has been undersurface remodeling of the patella. No periprosthetic lucency is id entified. There is a joint effusion. The overlying soft tissues are normal as imaged. Atherosclerotic calcification is seen in the popliteal artery. IMPRESSION: 1. Joint effusion with no acute bony abnormality identified. 2. A right knee arthroplasty is in near anatomic alignment. Electronically signed by: Marvel Osborne M.D. 09/21/2025 1:06 PM
[2025-09-21] MEDS: SODIUM CHLORIDE 0.9% 1,000 ML IV SCH ×2 (13:12→18:48)
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
--- NOTE | 2025-09-21 13:24 | XRay Report ---
XR chest 1V portable CLINICAL HISTORY: Trauma. COMPARISON STUDY: PET/CT June 10, 2025. Chest radiograph July 22, 2025. FINDINGS: Diffuse skeletal metastases are again noted. Skin folds project over the left chest. There is no pneumothorax or pleural effusion. Elevation of the right hemidiaphragm is unchanged. No consoli dation to suggest pneumonia. The appearance of the chest has not significantly changed. Old right cla vicular fracture. IMPRESSION: 1. No significant change in appearance of the chest. No acute findings. 2. Redemonstration of skeletal metastases. ACT 112: Negative or not required by law. Electronically signed by: Ricardo Carey M.D. 09/21/2025 1:22 PM
[2025-09-21 13:34] LABS: T4 Free Thyroxine 1.84 ng/dl (0.61-1.60)
--- NOTE | 2025-09-21 13:39 | CT Scan Report ---
CT SCAN OF THE CERVICAL SPINE CLINICAL HISTORY: Fall. Breast cancer. COMPARISON STUDY: PET/CT dated 06/10/2025 TECHNIQUE: CT scan of the cervical spine is performed from the skull base to the upper thoracic spine . Images are reviewed in the axial, sagittal, and coronal planes. IV contrast was not administered fo r this examination. A dose lowering technique was utilized adhering to the principles of ALARA. FINDINGS: Skeletal structures: The skeletal structures are osteopenic. There is no evidence of acute fracture o r subluxation involving the cervical spine. A chronic compression deformity of C3 is unchanged. Verte bral body height is otherwise maintained throughout the cervical spine. Alignment is preserved. Again seen is evidence of multifocal osteoblastic metastatic disease. Anterior osteophytes are seen throu ghout. The odontoid process and lateral masses are intact. The atlantoaxial articulation is preserved noting productive degenerative change. The cervical spinous processes appear intact. There are chron ic nonunited spinous process fractures of T1 and T2. There is mild multilevel facet arthropathy. Intervertebral discs: There is severe disc space narrowing at C6-C7. Mild or moderate disc space narr owing is seen at the remaining cervical levels. Central canal: A posterior disc osteophyte complex at C6-C7 may contribute to acquired compromise of the central canal. Soft tissues: The prevertebral and paraspinous soft tissues are within normal limits. Soft tissue nod ularity in the left posterior neck is similar to the prior PET/CT. Calvarium: The visualized calvarium at the skull base appears intact. Metastatic disease is seen invo lving the clivus and the occipital bone. Brain parenchyma: Partially visualized brain parenchyma at the skull base is within normal limits. Sinuses and mastoids: The visualized paranasal sinuses are clear. The mastoid air cells are well pneu matized. Lung apices: Clear as visualized. IMPRESSION: 1. There is no evidence of acute fracture or subluxation involving the cervical spine. 2. 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 3. There is a chronic compression deformity of C3, as well as chronic nonunited spinous process fract ures of T1 and T2. 4. Additional findings as above. ACT 112: Negative or not required by law. Electronically signed by: Marvel Osborne M.D. 09/21/2025 1:36 PM
--- NOTE | 2025-09-21 14:12 | CT Scan Report ---
CT SCAN OF THE BRAIN WITHOUT IV CONTRAST CLINICAL HISTORY: Fall. COMPARISON STUDY: Head CT January 06, 2025. TECHNIQUE: Unenhanced axial CT scan of the brain was performed from the vertex to the skull base. A dose lowering technique was utilized adhering to the principles of ALARA. CT DOSE: 959.31 mGy.cm FINDINGS: Brain parenchyma: No acute intracranial hemorrhage, midline shift or mass effect is present. Hodges-whi te matter differentiation is preserved. There are no extra-axial fluid collections. There are no find ings to suggest acute dural sinus thrombosis or acute territorial infarct. Ventricles, sulci, cisterns: There is no hydrocephalus. The basal cisterns are patent. Calvarium: There are no calvarial fractures. Numerous calvarial lesions are again noted. Sinuses and mastoids: The visualized paranasal sinuses are clear. The mastoid air cells are well pneu matized. Orbits: The bony orbits are grossly intact. IMPRESSION: 1. No acute intracranial findings. 2. No calvarial fractures. Redemonstration of calvarial metastases. ACT 112: Negative or not required by law. Electronically signed by: Ricardo Carey M.D. 09/21/2025 2:11 PM
--- NOTE | 2025-09-21 14:23 | Emergency Department Note ---
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 the popliteal artery. IMPRESSION: 1. Joint effusion with no acute bony abnormality identified. 2. A right knee arthroplasty is in near anatomic alignment. Electronically signed by: Marvel Osborne M.D. 09/21/2025 1:[address] 09/21/25 12:02 CT SCAN OF THE CERVICAL SPINE CLINICAL HISTORY: Fall. Breast cancer. COMPARISON STUDY: PET/CT dated 06/10/2025 TECHNIQUE: CT scan of the cervical spine is performed from the skull base to the upper thoracic spine. Images are reviewed in the axial, sagittal, and coronal planes. IV contrast was not administered for this examination. A dose lowering technique was utilized adhering to the principles of ALARA. FINDINGS: Skeletal structures: The skeletal structures are osteopenic. There is no evidence of acute fracture or subluxation involving the cervical spine. A chronic compression deformity of C3 is unchanged. Vertebral body height is otherwise maintained throughout the cervical spine. Alignment is preserved. Again seen is evidence of multifocal osteoblastic metastatic disease. Anterior osteophytes are seen throughout. The odontoid process and lateral masses are intact. The atlantoaxial articulation is preserved noting productive degenerative change. The cervical spinous processes appear intact. There are chronic nonunited spinous process fractures of T1 and T2. There is mild multilevel facet arthropathy. Intervertebral discs: There is severe disc space narrowing at C6-C7. Mild or moderate disc space narrowing is seen at the remaining cervical levels. Central canal: A posterior disc osteophyte complex at C6-C7 may contribute to acquired compromise of the central canal. Soft tissues: The prevertebral and paraspinous soft tissues are within normal limits. Soft tissue nodularity in the left posterior neck is similar to the prior PET/CT. Calvarium: The visualized calvarium at the skull base appears intact. Metastatic disease is seen involving the clivus and the occipital bone. Brain parenchyma: Partially visualized brain parenchyma at the skull base is within normal limits. Sinuses and mastoids: The visualized paranasal sinuses are clear. The mastoid air cells are well pneumatized. Lung apices: Clear as visualized. IMPRESSION: 1. There is no evidence of acute fracture or subluxation involving the cervical spine. 2. 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 3. There is a chronic compression deformity of C3, as well as chronic nonunited spinous process fractures of T1 and T2. 4. Additional findings as above. ACT 112: Negative or not required by law. Electronically signed by: Marvel Osborne M.D. 09/21/2025 1:36 PM Chest X-Ray 09/21/25 12:02 XR chest 1V portable CLINICAL HISTORY: Trauma. COMPARISON STUDY: PET/CT June 10, 2025. Chest radiograph July 22, 2025. FINDINGS: Diffuse skeletal metastases are again noted. Skin folds project over the left chest. There is no pneumothorax or pleural effusion. Elevation of the right hemidiaphragm is unchanged. No consolidation to suggest pneumonia. The appearance of the chest has not significantly changed. Old right clavicular fracture. IMPRESSION: 1. No significant change in appearance of the chest. No acute findings. 2. Redemonstration of skeletal metastases. ACT 112: Negative or not required by law. Electronically signed by: Ricardo Carey M.D. 09/21/2025 1:22 PM Pelvis X-Ray 09/21/25 12:48 XR pelvis 1-2V routine CLINICAL HISTORY: TRAUMA COMPARISON: PET/CT June 10, 2025. 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 Visualized portions of the left hip arthroplasty are intact. There are no fractures within the pelvis or hips. Sacroiliac joints and symphysis pubis are intact. IMPRESSION: 1. No fractures within the pelvis or hips. 2. Redemonstration of sclerotic skeletal metastases. ACT 112: Negative or not required by law. Electronically signed by: Ricardo Carey M.D. 09/21/2025 1:23 PM Discharge Plan Visit Data Chief Complaint: Fall Stated Complaint: R KNEE INJURY, FALL ED Provider: Micaela Silverman Discharge Problem: Knee pain, right, Cellulitis of right leg, Confusion, Fall, Breast cancer metastasized to bone Patient Disposition: Admitted As Inpatient Condition: Fair Discharge Instructions Interventions: ED Discharge Assessment Last Done: 09/21/25 17:46
[2025-09-21] MEDS: ACETAMINOPHEN 1,000 MG/100 ML VIAL IV STA (15:15)
[2025-09-21 15:36] LABS: Appearance Urine Clear (Clear); Bacteria Urine Automated None Seen (None Seen); Cast Urine Automated 0-2 /lpf (0-2); Epithelial Cell Urine Auto 0-2 /hpf (0-2); Glucose Urine UA Negative (Negative); RBC Urine Automated 0-2 /hpf (0-2); WBC Urine Automated 0-5 /hpf (0-5)
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
[2025-09-21] MEDS: SODIUM CHLORIDE 0.9% 1,000 ML IV ONE (16:41)
[2025-09-21] MEDS ORDERED: ONDANSETRON INJ 2 MG/ML 2 ML VIAL IV PRN (18:27)
[2025-09-21] MEDS ORDERED: POLYETHYLENE (MIRALAX) 17 GM PACK PO PRN (18:27)
[2025-09-21] MEDS: ENOXAPARIN INJ 40 MG/0.4 ML SYR SQ SCH (20:10)
[2025-09-21] MEDS: DAPTOmycin 350 MG in SYRINGE 0 ML IV SCH (20:10)
[2025-09-21] MEDS: CALCIUM CARBONATE 1250MG TAB PO SCH (20:10)
[2025-09-21] MEDS: cefTRIAXone SODIUM 2,000 MG/50 ML BAG IV SCH (20:10)
[2025-09-22] MEDS: ACETAMINOPHEN 325 MG TAB PO PRN (04:36)
[2025-09-22] MEDS: LEVOTHYROXINE SODIUM 125 MCG TABLET PO SCH (05:19)
[2025-09-22 06:09] LABS: Hematocrit (blood only) 23.1 % (37.0-47.0); Hemoglobin 7.8 g/dL (12.0-16.0); Mean Corpuscular Hemoglobin 35.5 pg (25.0-34.0); Mean Corpuscular Volume 105.0 fL (80.0-100.0); Platelet Count 286 K/uL (130-400); RDW Standard Deviation 54.7 fL (36.4-46.3); Red Blood Count 2.20 M/uL (4.20-5.40); White Blood Count 6.77 K/ul (4.8-10.8)
[2025-09-22 06:33] LABS: Dohle Bodies 1+; Immature Granulocytes # (auto) 0.09 K/uL (0.01-0.20); Immature Granulocytes % (auto) 1.3 %; Polychromasia 2+; Toxic Vacuolation 1+
[2025-09-22 06:35] LABS: Alanine Aminotransferase 28.0 U/L (7-52); Albumin Globulin Ratio 1.0 (0.9-2); Albumin Level 2.9 gm/dl (3.4-5.0); Alkaline Phosphatase 35.0 U/L (34-104); Anion Gap 8.0 (3-11); Bilirubin,Total 0.8 mg/dl (0.2-1.0); Blood Urea Nitrogen 25.0 mg/dl (6-23); Calcium 7.7 mg/dl (8.6-10.3); Carbon Dioxide 20.0 mmol/L (21-32); Chloride 104.0 mmol/L (98-107); Creatinine Clr Calc Pharmacy 43.1 ml/min; Globulin 3.0 gm/dl (2.5-4.0); Glucose 103.0 mg/dl (70-99(Fasting)); Potassium 3.2 mmol/L (3.5-5.1); Sodium 132.0 mmol/L (136-145); Total Protein 5.9 gm/dl (6.0-8.3)
[2025-09-22] MEDS: ANASTROZOLE 1 MG TAB PO SCH (08:18)
[2025-09-22] MEDS: LACTOBACILLUS ACIDOPHILUS 1 GM PACK PO SCH (08:19)
[2025-09-22] MEDS: CYANOCOBALAMIN (B-12) 500 MCG TABLET PO SCH (08:19)
[2025-09-22] MEDS: MULTIVITAMIN TAB PO SCH (08:20)
[2025-09-22] MEDS: CHOLECALCIFEROL 25 MCG (1000 UNITS) TAB PO SCH (08:20)
--- NOTE | 2025-09-22 09:35 | Hospitalist Progress Note ---
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 Patient reports she was sleeping on her couch and when she went to get up this morning, her right leg was painful and would not support her weight. She felt generally weak and her right leg is painful. She was not able to get off the floor and tried to scoot her way over to call someone for help but could not reach the phone. She does not recall hitting her head. She was a little bit confused in the ED and the day prior as per the son, but head imaging was negative for anything acute. She reports having shaking chills that started yesterday evening. She was found to have a right leg cellulitis and had mild tachycardia, mild leukocytosis, and mild tachypnea with soft blood pressures. Lactate was mildly elevated and improved with IV fluids. She was given cefepime, acetaminophen, and normal saline. She will be admitted for sepsis and right lower extremity cellulitis. #Sepsis/right lower extremity cellulitis - Admit to telemetry unit for arrhythmia monitoring and blood pressure monitoring - s/p 1 L bolus of normal saline in the ER and another 1 L of normal saline at 100 mL/h - d/c broad-spectrum antibiotics with ceftriaxone and daptomycin - start cefazolin 1g q8hrs for MSSA coverage - Follow blood cultures - Follow cellulitis clinically, elevate the extremity when possible - Follow CBC and BMP in the a.m. - Tylenol as needed for fever or pain #Acute metabolic encephalopathy-mild and seems to be improving now with IV fluids and antibiotics in the ED. Likely secondary to sepsis - Supportive care - Treating infection #Elevated troponin/possible atrial fibrillation versus artifact/heart murmur- initial ECG with a lot of artifact with possible atrial fibrillation but she sounds regular on examination with some ectopy. Denies chest pain and no ischemic changes on ECG noted. Does have a harsh murmur and has never been told this before. Initial troponin mildly elevated at 21, 23-likely myocardial demand ischemia in the setting of sepsis - TTE: EF 55-60%, aortic valve sclerosis, small pericardial effusion without tamponade - will follow #Fall-secondary to weakness from sepsis and infection. 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 Kurtz for oncology. With mild leukocytosis and thrombocytosis secondary to infection. A nemia likely secondary to chemotherapy - Continue home anastrozole but hold home ribociclib with ongoing acute infection - Follow CBC #Hypothyroidism-TSH here is low and free T4 is elevated. She is on levothyroxine 137 mcg at home - Reduce levothyroxine dose to 125 mcg p.o. once daily - Follow TSH as an outpatient in 4 to 6 weeks #Right hydronephrosis/right ureter stricture-noted, renal function currently normal. Unclear cause of this but has been present at least since 02/2025 on PET scan - Follow BMP DVT prophylaxis-Lovenox Dispo-PCU Admission and Anticipated Discharge Date Admission Date: September 21, 2025 Supervising Physician Co-Signing Physician Notes I personally examined the patient and verified all guevara points of history and exam, discussed case, and agree with decision making with Dr Rodriguez Tried to see multiple times1 time being cleaned up. Another time sleeping comfortably. Discussed with resident physician extensively. Vitals noted, in general she is resting comfortably and appears to be in no distress. Breathing unlabored no accessory muscle use good effort spontaneously. Labs and diagnostics noted. Cellulitis with sepsis present on admission (borderline white count, heart rate, respiratory rate)seems to be improving quite rapidly. De-escalate antibiotics to MSSA coverage. Follow into tomorrow. Hopefully home soon. DVT prophylaxisLovenox Subjective No overnight events. Pt seen this AM. Feeling better today. Knee pain has slightly improved. Denies fever, chills, CP, SOB, abdominal pain, or complaints. Review of Systems Review of Systems: per HPI Physical Exam Physical Exam: GA: well groomed, well nourished in no apparent distress. AAOx3 HEENT: head normocephalic, atraumatic. EOMI RESP: vesicular breath sounds b/l. No wheezes, rhonchi, or rales CARDIOVASCULAR: S1 and S2 heard. Systolic murmur. Radial and PT pulses 2+ b/l RRR. DP pulses 1+ B/L. GI: no tenderness or masses felt to palpation MSK: tenderness to palpation of knee on lateral side SKIN: Rt leg: warm to touch, minor erythema, stasis dermatitis; Lt left, stasis dermatitis PSYCH: appropriate mood and affect NEURO: no focal deficits. speech fluent Results & Data Results & Data Vital Signs (Past 12 Hours) Vital Signs Temp Pulse Pulse Resp BP Pulse Ox O2 Del Method 09/22/25 07:43 36.8 C 93 H 14 100/57 L 93 Room Air 09/22/25 03:00 37.6 C H 92 H 20 111/59 L 95 Room Air 09/21/25 23:29 36.9 C 81 17 119/64 96 Room Air 09/21/25 22:00 80 Resident Activity Tracking Resident Involvement: Resident Care Provided Care Provided: Adult Hospital Medicine
--- NOTE | 2025-09-22 09:47 | XCELERA ---
[id number]
[2025-09-22] MEDS: POTASSIUM CHLORIDE CRTAB 20 MEQ TABCR PO ONE (10:10)
--- NOTE | 2025-09-22 17:27 | Billing Data ---
Date of Service September 22, 2025 Coding Level of Care Code 15016 SUB INP/OBS CARE
[2025-09-23 05:59] LABS: Hematocrit (blood only) 23.7 % (37.0-47.0); Hemoglobin 8.0 g/dL (12.0-16.0); Mean Corpuscular Hemoglobin 34.9 pg (25.0-34.0); Mean Corpuscular Volume 103.5 fL (80.0-100.0); Platelet Count 276 K/uL (130-400); RDW Standard Deviation 53.1 fL (36.4-46.3); Red Blood Count 2.29 M/uL (4.20-5.40); White Blood Count 5.35 K/ul (4.8-10.8)
[2025-09-23 06:14] LABS: Anion Gap 8.0 (3-11); Blood Urea Nitrogen 23.0 mg/dl (6-23); Calcium 8.2 mg/dl (8.6-10.3); Carbon Dioxide 20.0 mmol/L (21-32); Chloride 107.0 mmol/L (98-107); Creatinine Clr Calc Pharmacy 50.9 ml/min; Potassium 3.7 mmol/L (3.5-5.1); Sodium 135.0 mmol/L (136-145)
--- NOTE | 2025-09-23 06:17 | Electrocardiogram Report ---
Test Reason : Blood Pressure : */* mmHG Vent. Rate : 91 BPM Atrial Rate : * BPM P-R Int : 248 ms QRS Dur : 72 ms QT Int : 358 ms P-R-T Axes : * 48 61 degrees QTcB Int : 440 ms Poor data quality, interpretation may be adversely affected Possible Sinus rhythm with 1st degree A-V block Premature atrial complexes Septal infarct , age undetermined Abnormal ECG When compared with ECG of 11-Mar-2025 10:41, Septal infarct is now Present T wave amplitude has decreased in Inferior leads Confirmed by Aurelio Cruz ([id number]) on 09/23/2025 6:17:45 AM Referred By: REFERRED SELF Confirmed By: Aurelio Cruz
[2025-09-23 06:58] LABS: Immature Granulocytes # (auto) 0.05 K/uL (0.01-0.20); Immature Granulocytes % (auto) 0.9 %; Polychromasia 2+
[2025-09-23] MEDS ORDERED: Nursing to Pharmacy Communication SCH (12:15)
[2025-09-23] MEDS: ACETAMINOPHEN 500 MG TAB PO SCH (13:41)
--- NOTE | 2025-09-23 15:47 | Hospitalist Progress Note ---
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 Patient reports she was sleeping on her couch and when she went to get up this morning, her right leg was painful and would not support her weight. She felt generally weak and her right leg is painful. She was not able to get off the floor and tried to scoot her way over to call someone for help but could not reach the phone. She does not recall hitting her head. She was a little bit confused in the ED and the day prior as per the son, but head imaging was negative for anything acute. She reports having shaking chills that started yesterday evening. She was found to have a right leg cellulitis and had mild tachycardia, mild leukocytosis, and mild tachypnea with soft blood pressures. Lactate was mildly elevated and improved with IV fluids. She was given cefepime, acetaminophen, and normal saline. She will be admitted for sepsis and right lower extremity cellulitis. #right lower extremity cellulitis #sepsis, resolved - on telemetry unit for arrhythmia monitoring and blood pressure monitoring - s/p 1 L bolus of normal saline in the ER and another 1 L of normal saline at 100 mL/h - cefazolin 1g q8hrs for MSSA coverage - blood cultures NGTD - Follow cellulitis clinically, elevate the extremity when possible - Follow CBC and BMP in the a.m. #Right Knee Pain--related to mechanical fall - Tylenol 1000mg tid scheduled for mild-moderate pain - Ibuprofen 600mg tid prn for mod-severe pain #Fall-secondary to weakness from sepsis and infection. Numerous imaging studies performed and negative for fractures but does have numerous osteoblastic bony lesions - pain mgt as above - PT/OT #Acute metabolic encephalopathy-mild on admission and seems to be resolved now with IV fluids and antibiotics in the ED. Likely secondary to sepsis. - Supportive care - Treating infection #Elevated troponin/possible atrial fibrillation versus artifact/heart murmur- initial ECG with a lot of artifact with possible atrial fibrillation but she sounds regular on examination with some ectopy. Denies chest pain and no ischemic changes on ECG noted. Does have a harsh murmur and has never been told this before. Initial troponin mildly elevated at 21, 23-likely myocardial demand ischemia in the setting of sepsis - TTE: EF 55-60%, mild aortic valve sclerosis, small pericardial effusion without tamponade - will follow #Metastatic breast cancer with mets to the bones on chemotherapy with anastrozole and ribociclib/anemia/thrombocytosis-follows with Dr. Kurtz for oncology. With mild leukocytosis and thrombocytosis secondary to infection. Anemia likely secondary to chemotherapy - Continue home anastrozole but hold home ribociclib with ongoing acute infection - Follow CBC #Hypothyroidism-TSH here is low and free T4 is elevated. She is on levothyroxine 137 mcg at home - Continue levothyroxine dose to 125 mcg p.o. once daily - Follow TSH as an outpatient in 4 to 6 weeks #Right hydronephrosis/right ureter stricture-noted, renal function currently normal. Unclear cause of this but has been present at least since 02/2025 on PET scan - Follow BMP DVT prophylaxis-Lovenox Dispo-PCU Admission and Anticipated Discharge Date Admission Date: September 21, 2025 Supervising Physician Co-Signing Physician Notes I personally examined the patient and verified all guevara points of history and exam, discussed case, and agree with decision making with Dr Rodriguez Seen after working with OT. Able to get up. Right leg still hurts a lotmostly in the knee, not down in the [place] where the infection was. Agrees she would likely need rehab. Vitals noted, in general she is awake and alert pleasant no distress. HEENT normocephalic atraumatic mucous membranes moist. Right lower extremity with tenderness to kneepredominantly soft tissue in the distal quad, a little bit on the joint line, minor effusion no erythema no tenderness there is no tracking erythema from the shinactually that has all really resolved to just venous stasis like changes and nothing even remotely approaching the knee with the venous stasis changes. Cellulitis with sepsis present on admission (borderline white count, heart rate, respiratory rate)seems to be improving quite rapidly. De-escalated antibiotics to MSSA coverage. Medically doing well. Anticipate probably 7 days of total coverage and once she has a rehab/SNF bed could finish out coverage with cephalexin. Knee painappears to be soft tissue mediatedVoltaren gel, scheduled Tylenol, as needed ibuprofen. PT/OT. Deconditioning/weaknessanticipate SNF. DVT prophylaxisLovenox Subjective No overnight events. Pt seen this AM.Overall feeling better but still complains of right knee pain without being able to bear weight on the extremity. Denies fever, chills, CP, SOB, abdominal pain, or complaints. Review of Systems Review of Systems: per HPI Physical Exam Physical Exam: GA: well groomed, well nourished in no apparent distress. AAOx3 HEENT: head normocephalic, atraumatic. EOMI RESP: vesicular breath sounds b/l. No wheezes, rhonchi, or rales CARDIOVASCULAR: S1 and S2 heard. Systolic murmur. Radial a 2+ b/l RRR GI: no tenderness or masses felt to palpation MSK: RT knee: edematous and tenderness to palpation of knee, no erythema SKIN: Rt leg: minor erythema, stasis dermatitis; Lt left, stasis dermatitis PSYCH: appropriate mood and affect NEURO: no focal deficits. speech fluent Results & Data Results & Data Vital Signs (Past 12 Hours) Vital Signs Temp Pulse Pulse Resp BP Pulse Ox O2 Del Method 09/23/25 15:19 36.7 C 70 18 120/60 98 Room Air 09/23/25 14:00 77 09/23/25 07:30 81 09/23/25 07:18 36.9 C 83 18 117/63 95 Room Air Resident Activity Tracking Resident Involvement: Resident Care Provided Care Provided: Adult Hospital Medicine
--- NOTE | 2025-09-23 16:27 | Billing Data ---
Date of Service September 23, 2025 Coding Level of Care Code 07258 SUB INP/OBS CARE MIN
[2025-09-24 06:26] LABS: Hematocrit (blood only) 25.0 % (37.0-47.0); Hemoglobin 8.6 g/dL (12.0-16.0); Immature Granulocytes # (auto) 0.04 K/uL (0.01-0.20); Immature Granulocytes % (auto) 0.7 %; Mean Corpuscular Hemoglobin 35.7 pg (25.0-34.0); Mean Corpuscular Volume 103.7 fL (80.0-100.0); Platelet Count 296 K/uL (130-400); RDW Standard Deviation 52.8 fL (36.4-46.3); Red Blood Count 2.41 M/uL (4.20-5.40); White Blood Count 5.64 K/ul (4.8-10.8)
[2025-09-24 06:42] LABS: Anion Gap 8.0 (3-11); Blood Urea Nitrogen 18.0 mg/dl (6-23); Calcium 8.5 mg/dl (8.6-10.3); Carbon Dioxide 23.0 mmol/L (21-32); Chloride 105.0 mmol/L (98-107); Creatinine Clr Calc Pharmacy 58.3 ml/min; Potassium 3.7 mmol/L (3.5-5.1); Sodium 136.0 mmol/L (136-145)
--- NOTE | 2025-09-24 09:41 | Hospitalist Progress Note ---
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 Patient reports she was sleeping on her couch and when she went to get up this morning, her right leg was painful and would not support her weight. She felt generally weak and her right leg is painful. She was not able to get off the floor and tried to scoot her way over to call someone for help but could not reach the phone. She does not recall hitting her head. She was a little bit confused in the ED and the day prior as per the son, but head imaging was negative for anything acute. She reports having shaking chills that started yesterday evening. She was found to have a right leg cellulitis and had mild tachycardia, mild leukocytosis, and mild tachypnea with soft blood pressures. Lactate was mildly elevated and improved with IV fluids. She was given cefepime, acetaminophen, and normal saline. She will be admitted for sepsis and right lower extremity cellulitis. #right lower extremity cellulitis #sepsis, resolved - on telemetry unit for arrhythmia monitoring and blood pressure monitoring - s/p 1 L bolus of normal saline in the ER and another 1 L of normal saline at 100 mL/h - cefazolin 1g q8hrs for MSSA coverage - blood cultures NGTD - Follow cellulitis clinically, elevate the extremity when possible - Follow CBC and BMP in the a.m. #Right Knee Pain--related to mechanical fall - Tylenol 1000mg tid scheduled for mild-moderate pain - Ibuprofen 600mg tid prn for mod-severe pain - Volteran gel qid #Fall-secondary to weakness from sepsis and infection. Numerous imaging studies performed and negative for fractures but does have numerous osteoblastic bony lesions - pain mgt as above - PT/OT #Acute metabolic encephalopathy, resolved-mild on admission and seems to be resolved now with IV fluids and antibiotics in the ED. Likely secondary to sepsis. - Supportive care - Treating infection #Elevated troponin/possible atrial fibrillation versus artifact/heart murmur- initial ECG with a lot of artifact with possible atrial fibrillation but she sounds regular on examination with some ectopy. Denies chest pain and no ischemic changes on ECG noted. Does have a harsh murmur and has never been told this before. Initial troponin mildly elevated at 21, 23-likely myocardial demand ischemia in the setting of sepsis - TTE: EF 55-60%, mild aortic valve sclerosis, small pericardial effusion without tamponade - will follow #Metastatic breast cancer with mets to the bones on chemotherapy with anastrozole and ribociclib/anemia/thrombocytosis-follows with Dr. Kurtz for oncology. With mild leukocytosis and thrombocytosis secondary to infection. Anemia likely secondary to chemotherapy - Continue home anastrozole but hold home ribociclib with ongoing acute infection - Follow CBC #Hypothyroidism-TSH here is low and free T4 is elevated. She was on levothyroxine 137 mcg at home - Continue levothyroxine dose to 125 mcg p.o. once daily - Follow TSH as an outpatient in 4 to 6 weeks #Right hydronephrosis/right ureter stricture-noted, renal function currently normal. Unclear cause of this but has been present at least since 02/2025 on PET scan - Follow BMP DVT prophylaxis-Lovenox Dispo-PCU Plan to go to rehab center upon dc. Pending placement. Admission and Anticipated Discharge Date Admission Date: September 21, 2025 Supervising Physician Co-Signing Physician Notes I personally examined the patient and verified all guevara points of history and exam, discussed case, and agree with decision making with Dr Rodriguez feelelisa about the same. Vitals noted, in general she is awake and alert pleasant no distress. HEENT normocephalic atraumatic mucous membranes moist. Right lower extremity with tenderness to kneepredominantly soft tissue in the distal quad, a and joint line, minor effusion no erythema no tenderness there is no tracking erythema from the shinactually that has all really resolved to just venous stasis like changes and nothing even remotely approaching the knee with the venous stasis changes. skin changes better than yesterday Cellulitis with sepsis present on admission (borderline white count, heart rate, respiratory rate)seems to be improving quite rapidly. De-escalated antibiotics to MSSA coverage. Medically doing well. Anticipate probably 5-7 days of total coverage and once she has a rehab/SNF bed could finish out coverage with cephalexin. Knee painappears to be soft tissue mediatedVoltaren gel, scheduled Tylenol, as needed ibuprofen. PT/OT. follow Deconditioning/weaknessanticipate SNF. DVT prophylaxisLovenox Subjective No overnight events. Pt seen this AM. States she feels off today but unable to pinpoint or clarify what she meant by that. She also said it may be related to just awakening for the day. She notes improvement of the right knee pain. Denies fever, chills, CP, SOB, abdominal pain, or complaints. Review of Systems Review of Systems: per HPI Physical Exam Physical Exam: GA: well groomed, well nourished in no apparent distress. AAOx3 HEENT: head normocephalic, atraumatic. EOMI RESP: vesicular breath sounds b/l. No wheezes, rhonchi, or rales CARDIOVASCULAR: S1 and S2 heard. Systolic murmur. Radial a 2+ b/l GI: no tenderness or masses felt to palpation MSK: RT knee: edematous, nontender, no erythema SKIN: Rt leg: erythema resolved. stasis dermatitis; Lt leg, stasis dermatitis PSYCH: appropriate mood and affect NEURO: no focal deficits. speech fluent Results & Data Results & Data Vital Signs (Past 12 Hours) Vital Signs Temp Pulse Pulse Resp BP Pulse Ox O2 Del Method 09/24/25 07:49 36.8 C 84 14 114/63 97 Room Air 09/24/25 03:46 36.5 C 81 18 121/59 L 97 Room Air 09/23/25 23:52 36.7 C 87 16 115/56 L 92 Room Air 09/23/25 21:48 90 Resident Activity Tracking Resident Involvement: Resident Care Provided Care Provided: Adult Hospital Medicine
[2025-09-24] MEDS: DICLOFENAC SOD 1% GEL 100 GM TUBE EXT PRN (09:44)
[2025-09-24] MEDS: ADVANCED PROBIOTIC 625 MG CAPSULE PO SCH (09:45)
[2025-09-24] MEDS ORDERED: ARTIFICIAL TEARS OPB PRN (14:52)
[2025-09-24] MEDS: DICLOFENAC SOD 1% GEL 100 GM TUBE EXT SCH (15:47)
--- NOTE | 2025-09-24 19:47 | Billing Data ---
Date of Service September 24, 2025 Coding Level of Care Code 23965 SUB INP/OBS CARE
[2025-09-25] MEDS: IBUPROFEN 600 MG TAB PO PRN (06:34)
[2025-09-25 06:46] LABS: Hematocrit (blood only) 24.0 % (37.0-47.0); Hemoglobin 8.3 g/dL (12.0-16.0); Immature Granulocytes # (auto) 0.05 K/uL (0.01-0.20); Immature Granulocytes % (auto) 0.8 %; Mean Corpuscular Hemoglobin 35.5 pg (25.0-34.0); Mean Corpuscular Volume 102.6 fL (80.0-100.0); Platelet Count 280 K/uL (130-400); RDW Standard Deviation 51.4 fL (36.4-46.3); Red Blood Count 2.34 M/uL (4.20-5.40); White Blood Count 5.97 K/ul (4.8-10.8)
[2025-09-25 07:09] LABS: Anion Gap 8.0 (3-11); Blood Urea Nitrogen 20.0 mg/dl (6-23); Calcium 8.4 mg/dl (8.6-10.3); Carbon Dioxide 23.0 mmol/L (21-32); Chloride 106.0 mmol/L (98-107); Creatinine Clr Calc Pharmacy 56.5 ml/min; Potassium 3.7 mmol/L (3.5-5.1); Sodium 137.0 mmol/L (136-145)
--- NOTE | 2025-09-25 07:50 | Hospitalist Progress Note ---
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 Patient reports she was sleeping on her couch and when she went to get up this morning, her right leg was painful and would not support her weight. She felt generally weak and her right leg is painful. She was not able to get off the floor and tried to scoot her way over to call someone for help but could not reach the phone. She does not recall hitting her head. She was a little bit confused in the ED and the day prior as per the son, but head imaging was negative for anything acute. She reports having shaking chills that started yesterday evening. She was found to have a right leg cellulitis and had mild tachycardia, mild leukocytosis, and mild tachypnea with soft blood pressures. Lactate was mildly elevated and improved with IV fluids. She was given cefepime, acetaminophen, and normal saline. She will be admitted for sepsis and right lower extremity cellulitis. #right lower extremity cellulitis, resolving #sepsis, resolved - downgrade to medical-surg - cefazolin 1g tid for MSSA coverage - blood cultures NGTD - Follow cellulitis clinically, elevate the extremity when possible - Follow CBC and BMP in the a.m. #Right Knee Pain--related to mechanical fall - Tylenol 1000mg tid scheduled for mild-moderate pain - Ibuprofen 600mg tid prn for mod-severe pain - Volteran gel qid #Fall-secondary to weakness from sepsis and infection. Numerous imaging studies performed and negative for fractures but does have numerous osteoblastic bony lesions - pain mgt as above - PT/OT #Acute metabolic encephalopathy, resolved-mild on admission and seems to be resolved now with IV fluids and antibiotics in the ED. Likely secondary to sepsis. - Supportive care - Treating infection #Elevated troponin/possible atrial fibrillation versus artifact/heart murmur- initial ECG with a lot of artifact with possible atrial fibrillation but she sounds regular on examination with some ectopy. Denies chest pain and no ischemic changes on ECG noted. Does have a harsh murmur and has never been told this before. Initial troponin mildly elevated at 21, 23-likely myocardial demand ischemia in the setting of sepsis - TTE: EF 55-60%, mild aortic valve sclerosis, small pericardial effusion without tamponade - will follow #Metastatic breast cancer with mets to the bones on chemotherapy with anastrozole and ribociclib/anemia/thrombocytosis-follows with Dr. Kurtz for oncology. With mild leukocytosis and thrombocytosis secondary to infection. Anemia likely secondary to chemotherapy - Continue home anastrozole but hold home ribociclib with ongoing acute infection - Follow CBC #Hypothyroidism-TSH here is low and free T4 is elevated. She was on l evothyroxine 137 mcg at home - Continue levothyroxine dose to 125 mcg p.o. once daily - Follow TSH as an outpatient in 4 to 6 weeks #Right hydronephrosis/right ureter stricture-noted, renal function currently normal. Unclear cause of this but has been present at least since 02/2025 on PET scan - Follow BMP DVT prophylaxis-Lovenox Dispo-Med/surg Plan to go to rehab center upon dc. Pending placement. Admission and Anticipated Discharge Date Admission Date: September 21, 2025 Supervising Physician Co-Signing Physician Notes I personally examined the patient and verified all guevara points of history and exam, discussed case, and agree with decision making with Dr Rodriguez able to walk a little bit better. Looking forward to rehab. Vitals noted, in general she is awake and alert pleasant no distress. HEENT normocephalic atraumatic mucous membranes moist. breathing unlabored no accessory muscle use good effort. Skin without rashes pallor or icterus. Neuro without focal deficits. Cellulitis with sepsis present on admission (borderline white count, heart rate, respiratory rate)seems to be improving quite rapidly. De-escalated antibiotics to MSSA coverage. Medically doing well. Anticipate probably 5-7 days of total coverage and once she has a rehab/SNF bed could finish out coverage with cephalexin. Awaiting DC to SNF Knee painappears to be soft tissue mediatedVoltaren gel, scheduled Tylenol, as needed ibuprofen. PT/OT. follow. Functional status improving Deconditioning/weaknessanticipate SNFawaiting insurance approval/bed av ailability DVT prophylaxisLovenox Subjective No overnight events. Today pt feels fine. Still having some right knee discomfort. Denies fever, chills, CP, SOB, abdomen, and complaints. Review of Systems Review of Systems: per HPI Physical Exam Physical Exam: GA: well groomed, well nourished in no apparent distress. AAOx3 HEENT: head normocephalic, atraumatic. EOMI RESP: vesicular breath sounds b/l. No wheezes, rhonchi, or rales CARDIOVASCULAR: S1 and S2 heard. Systolic murmur. Radial a 2+ b/l MSK: RT knee: edematous, nontender, no erythema SKIN: Rt leg: erythema resolved. stasis dermatitis; Lt leg, stasis dermatitis PSYCH: appropriate mood and affect NEURO: no focal deficits. speech fluent Results & Data Results & Data Vital Signs (Past 12 Hours) Vital Signs Temp Pulse Pulse Resp BP Pulse Ox O2 Del Method 09/25/25 03:32 37.1 C 72 18 127/67 97 Room Air 09/24/25 23:19 36.7 C 83 17 104/57 L 94 Room Air 09/24/25 22:01 87 Resident Activity Tracking Resident Involvement: Resident Care Provided Care Provided: Adult Hospital Medicine
--- NOTE | 2025-09-25 13:33 | Billing Data ---
Date of Service September 25, 2025 Coding Level of Care Code 64277 SUB INP/OBS CARE
[2025-09-26 05:29] LABS: Hematocrit (blood only) 23.6 % (37.0-47.0); Hemoglobin 7.9 g/dL (12.0-16.0); Immature Granulocytes # (auto) 0.06 K/uL (0.01-0.20); Immature Granulocytes % (auto) 1.1 %; Mean Corpuscular Hemoglobin 34.1 pg (25.0-34.0); Mean Corpuscular Volume 101.7 fL (80.0-100.0); Platelet Count 289 K/uL (130-400); RDW Standard Deviation 51.5 fL (36.4-46.3); Red Blood Count 2.32 M/uL (4.20-5.40); White Blood Count 5.53 K/ul (4.8-10.8)
[2025-09-26 05:47] LABS: Anion Gap 7.0 (3-11); Blood Urea Nitrogen 25.0 mg/dl (6-23); Calcium 8.5 mg/dl (8.6-10.3); Carbon Dioxide 23.0 mmol/L (21-32); Chloride 108.0 mmol/L (98-107); Creatinine Clr Calc Pharmacy 43.6 ml/min; Potassium 3.9 mmol/L (3.5-5.1); Sodium 138.0 mmol/L (136-145)
[2025-09-26 05:53] LABS: RBC Morphology Unremarkable
--- NOTE | 2025-09-26 12:04 | Hospitalist Progress Note ---
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 Patient reports she was sleeping on her couch and when she went to get up this morning, her right leg was painful and would not support her weight. She felt generally weak and her right leg is painful. She was not able to get off the floor and tried to scoot her way over to call someone for help but could not reach the phone. She does not recall hitting her head. She was a little bit confused in the ED and the day prior as per the son, but head imaging was negative for anything acute. She reports having shaking chills that started yesterday evening. She was found to have a right leg cellulitis and had mild tachycardia, mild leukocytosis, and mild tachypnea with soft blood pressures. Lactate was mildly elevated and improved with IV fluids. She was given cefepime, acetaminophen, and normal saline. She will be admitted for sepsis and right lower extremity cellulitis. #right lower extremity cellulitis, resolving #sepsis, resolved - doing well this morning, right knee still swollen compared to left, however no obvious signs of worsening infection - WBC 5.53, continues to remain stable - continue cefazolin 1g tid for MSSA coverage - will d/c abx after today, total tx course of 5 days. - blood cultures NGTD - Follow cellulitis clinically, elevate the extremity when possible - Follow CBC and BMP in the a.m. #Right Knee Pain--related to mechanical fall - all imaging studies performed and negative for fractures, however does have numerous osteoblastic bony lesions from known metastatic disease - Tylenol 1000mg tid scheduled for mild-moderate pain - Ibuprofen 600mg tid prn for mod-severe pain - Volteran gel qid - PT/OT evaluation #Acute metabolic encephalopathy, resolved - reportedly mild on admission, likely in the setting of sepsis, improved with IV fluids and abx ; patient A&O x4 this morning at bedside - Supportive care - infection tx as above #Elevated troponin/possible atrial fibrillation versus artifact/heart murmur - initial ECG with a lot of artifact with possible atrial fibrillation but she sounds regular on examination with some ectopy. Denies chest pain and no ischemic changes on ECG noted. Does have a harsh murmur and has never been told this before. - Initial troponin mildly elevated at 21, 23-likely myocardial demand ischemia in the setting of sepsis - TTE: EF 55-60%, mild aortic valve sclerosis, small pericardial effusion without tamponade - remains asymptomatic and hemodynamically stable, will continue to monitor #Metastatic breast cancer with mets to the bones on chemotherapy with anastrozole and ribociclib/anemia/thrombocytosis - follows with Dr. Kurtz for oncology. With mild leukocytosis and thrombocytosis secondary to infection - these have resolved with infection tx. Anemia likely secondary to chemotherapy - Continue home anastrozole but hold home ribociclib with ongoing acute infection - Follow CBC #Hypothyroidism- - TSH here is low and free T4 is elevated. She was on levothyroxine 137 mcg at home. - Continue levothyroxine dose to 125 mcg p.o. once daily - Follow TSH as an outpatient in 4 to 6 weeks #Right hydronephrosis/right ureter stricture-noted, renal function currently normal. Unclear cause of this but has been present at least since 02/2025 on PET scan - Follow BMP - no urinary sx, having good urine output DVT prophylaxis-Lovenox Dispo-Med/surg Possible discharge home, depending on improvement of patient's condition - can consider if deemed safe. Short-term rehab placement is pending approval. Admission and Anticipated Discharge Date Admission Date: September 21, 2025 Supervising Physician Co-Signing Physician Notes I personally examined the patient and verified all guevara points of history and exam, discussed case, and agree with decision making with Dr De La Cruz starting to get around well enough that she thinks she will be able to go home instead of rehab. Would like another day or so in the hospital, and notes that her family support will be much better at the beginning of the week. Vitals noted, in general she is awake and alert pleasant no distress. HEENT normocephalic atraumatic mucous membranes moist. breathing unlabored no accessory muscle use good effort. Skin without rashes pallor or icterus. Neuro without focal deficits. Cellulitis with sepsis present on admission (borderline white count, heart rate, respiratory rate)seems to be improving quite rapidly. De-escalated antibiotics to MSSA coverage. Medically doing well. okay to stop antibiotics today Knee painappears to be soft tissue mediatedVoltaren gel, scheduled Tylenol, as needed ibuprofen. PT/OT. follow. Functional status improving Deconditioning/weakness initially was looking at SNF, rehab emphasis. She is progressing, and would very much like to go home. her progress and improvement in functional status makes this appear realistic - continue to follow DVT prophylaxisLovenox Subjective Patient seen and examined at bedside this morning. No overnight issues. No acute concerns. Feeling well this morning, ambulation is improving. States she would like to be discharged home if condition continues to improve. Right knee pain is improving. VS stable. Denies chest pain, SOB, palpitations, N/V Review of Systems Review of Systems: per HPI Physical Exam Physical Exam: Gen: WD/WN, appears comfortable and NAD HEENT: NCAT, normal conjunctiva, EOMI, MMM, trachea midline CV: clinically well-perfused, NRR, no peripheral edema noted on exam. Distal pulses 2+ bilaterally Resp: CTA BL, saturating well on RA, Symmetrical chest rise, breathing unlabored MSK: swelling of right knee > L, no tenderness to palpation. No other obvious deformities Skin: right knee w/o erythema or warm, as compared to left. Warm, dry, no rashes or bruising or other lesions appreciated Neuro: A&Ox4. CN II-XII grossly intact. Moves all extremities Psych: euthymic mood, full affect Results & Data Results & Data Vital Signs (Past 12 Hours) Vital Signs Temp Pulse Resp BP Pulse Ox O2 Del Method 09/25/25 23:06 36.8 C 82 17 110/61 94 Room Air 09/25/25 20:19 36.8 C 81 18 125/60 95 Room Air
--- NOTE | 2025-09-26 14:08 | Billing Data ---
Date of Service September 26, 2025 Coding Level of Care Code 44694 SUB INP/OBS CARE
[2025-09-27 06:57] LABS: Hematocrit (blood only) 24.1 % (37.0-47.0); Hemoglobin 7.9 g/dL (12.0-16.0); Mean Corpuscular Hemoglobin 34.2 pg (25.0-34.0); Mean Corpuscular Volume 104.3 fL (80.0-100.0); Platelet Count 309 K/uL (130-400); RDW Standard Deviation 52.2 fL (36.4-46.3); Red Blood Count 2.31 M/uL (4.20-5.40); White Blood Count 5.23 K/ul (4.8-10.8)
[2025-09-27 07:19] LABS: Anion Gap 8.0 (3-11); Blood Urea Nitrogen 26.0 mg/dl (6-23); Calcium 8.6 mg/dl (8.6-10.3); Carbon Dioxide 23.0 mmol/L (21-32); Chloride 108.0 mmol/L (98-107); Creatinine Clr Calc Pharmacy 52.4 ml/min; Glucose 93.0 mg/dl (70-99(Fasting)); Potassium 3.8 mmol/L (3.5-5.1); Sodium 139.0 mmol/L (136-145)
--- NOTE | 2025-09-27 08:17 | Hospitalist Progress Note ---
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 Patient reports she was sleeping on her couch and when she went to get up this morning, her right leg was painful and would not support her weight. She felt generally weak and her right leg is painful. She was not able to get off the floor and tried to scoot her way over to call someone for help but could not reach the phone. She does not recall hitting her head. She was a little bit confused in the ED and the day prior as per the son, but head imaging was negative for anything acute. She reports having shaking chills that started yesterday evening. She was found to have a right leg cellulitis and had mild tachycardia, mild leukocytosis, and mild tachypnea with soft blood pressures. Lactate was mildly elevated and improved with IV fluids. She was given cefepime, acetaminophen, and normal saline. She will be admitted for sepsis and right lower extremity cellulitis. #right lower extremity cellulitis, resolving #sepsis, resolved - doing well this morning, right knee still swollen compared to left, however no obvious signs of worsening infection - WBC 5.23, contines to be hemodynamically stable and afebrile - abx course with cefazolin 1g tid for MSSA coverage was completed for total of 5 day course. - blood cultures NGTD - elevate right extremity when possible - CBC, BMP qAM #Right Knee Pain--related to mechanical fall - all imaging studies performed and negative for fractures, however does have numerous osteoblastic bony lesions from known metastatic disease - Tylenol 1000mg tid scheduled for mild-moderate pain - Ibuprofen 600mg tid prn for mod-severe pain - Volteran gel qid - PT/OT evaluation #Acute metabolic encephalopathy, resolved - reportedly mild on admission, likely in the setting of sepsis, improved with IV fluids and abx ; patient continues to be A&O x4 this morning - abx course for infection completed as above - supportive care and reorientation as needed #Elevated troponin/possible atrial fibrillation versus artifact/heart murmur - initial ECG with a lot of artifact with possible atrial fibrillation but she sounds regular on examination with some ectopy. ECG w/o evidence of ischemic changes. - Initial troponin mildly elevated at 21, 23-likely myocardial demand ischemia in the setting of sepsis ; patient remains asymptomatic this morning, vitals wnl. - TTE: EF 55-60%, mild aortic valve sclerosis, small pericardial effusion without tamponade - EKG prn for chest pain - continue to monitor #Metastatic breast cancer with mets to the bones on chemotherapy with anastrozole and ribociclib/anemia/thrombocytosis - follows with Dr. Kurtz for oncology. With mild leukocytosis and thrombocytosis secondary to infection - these have resolved with infection tx. Anemia likely secondary to chemotherapy - Continue home anastrozole but hold home ribociclib with ongoing acute infection - Follow CBC #Hypothyroidism- - TSH here is low and free T4 is elevated. She was on levothyroxine 137 mcg at home. - Continue levothyroxine dose to 125 mcg p.o. once daily - Follow TSH as an outpatient in 4 to 6 weeks #Right hydronephrosis/right ureter stricture-noted, renal function currently normal. Unclear cause of this but has been present at least since 02/2025 on PET scan - Follow BMP - no urinary sx, having good urine output DVT prophylaxis-Lovenox Dispo-Med/surg Possible discharge home tomorrow, depending on improvement of patient's condition - can consider if deemed safe. Short-term rehab placement is pending approval. Admission and Anticipated Discharge Date Admission Date: September 21, 2025 Supervising Physician Co-Signing Physician Notes I personally examined the patient and verified all guevara points of history and exam, discussed case, and agree with decision making with Dr De La Cruz continues to feel better and stronger - feels she can navigate well enough that she can go home - just notes that family support will be better tomorrow. notes son could get her in AM. Vitals noted, in general she is awake and alert pleasant no distress. HEENT normocephalic atraumatic mucous membranes moist. breathing unlabored no accessory muscle use good effort. Skin without rashes pallor or icterus. Neuro without focal deficits. Cellulitis with sepsis present on admission (borderline white count, heart rate, respiratory rate)seems to be improving quite rapidly. De-escalated antibiotics to MSSA coverage. Medically doing well. off abx. Knee painappears to be soft tissue mediatedVoltaren gel, scheduled Tylenol, as needed ibuprofen. PT/OT. follow. Functional status improving Deconditioning/weakness initially was looking at SNF, rehab emphasis. She is progressing, and would very much like to go home. her progress and improvement in functional status makes this appear realistic - continue to follow; possibly home with son in AM 09/28. DVT prophylaxisLovenox Subjective Patient seen and examined at bedside this morning. No overnight issues. No acute concerns. Feeling well this morning, pain continues to improve. Feeling comfortable for home discharge tomorrow AM. VS stable. Denies chest pain, SOB, palpitations, N/V Physical Exam Physical Exam: Gen: WD/WN, awake and resting comfortably in bed, no acute distress HEENT: NCAT, normal conjunctiva, EOMI, MMM, trachea midline CV: clinically well-perfused, NRRR, no peripheral edema noted on exam. Distal pulses 2+ bilaterally Resp: CTA BL, saturating well on RA, Symmetrical chest rise, breathing unlabored MSK: swelling of right knee > L, no tenderness to palpation. No other obvious deformities Skin: right knee w/o erythema or warmth, as compared to left. no rashes or bruising or other lesions appreciated Neuro: A&Ox4. CN II-XII grossly intact. Moves all extremities Psych: euthymic mood, full affect Results & Data Results & Data Vital Signs (Past 12 Hours) Vital Signs Temp Pulse Resp BP Pulse Ox O2 Del Method 09/27/25 07:03 37 C 73 16 113/73 96 Room Air 09/26/25 23:04 36.8 C 75 18 120/59 L 97 Room Air
--- NOTE | 2025-09-27 14:21 | Billing Data ---
Date of Service September 27, 2025 Coding Level of Care Code 61801 SUB INP/OBS CARE
--- NOTE | 2025-09-28 13:21 | Hospitalist Progress Note ---
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 Patient reports she was sleeping on her couch and when she went to get up this morning, her right leg was painful and would not support her weight. She felt generally weak and her right leg is painful. She was not able to get off the floor and tried to scoot her way over to call someone for help but could not reach the phone. She does not recall hitting her head. She was a little bit confused in the ED (09/21/25) and the day prior as per the son, but head imaging was negative for anything acute. She reports having shaking chills that started yesterday evening. She was found to have a right leg cellulitis and had mild tachycardia, mild leukocytosis, and mild tachypnea with soft blood pressures. Lactate was mildly elevated and improved with IV fluids. She was given cefepime, acetaminophen, and normal saline. She will be admitted for sepsis and right lower extremity cellulitis. #right lower extremity cellulitis, resolving #sepsis, resolved - doing well this morning (09/28/25), right knee still swollen compared to left, however no obvious signs of worsening infection - WBC 5.23, continues to be hemodynamically stable and afebrile - abx course with cefazolin 1g tid for MSSA coverage was completed for total of 5 day course. - blood cultures NGTD - elevate right extremity when possible - CBC, BMP qAM - Ordered Venous doppler for R. LE on 09/28/25. Came back with no sign of DVT. However, mildly enlarged, round, hypoechoic, and hypervascular lymph in the right groin. This is pathologically indeterminate and may be reactive. Clinical correlation will be required. A follow-up ultrasound in 1 to 2 months time is recommended for reassessment. - PT and OT has cleared patient to go home (09/28/25). However, patient's son wont be able to pick her up until tomorrow so will most likely d/c tomorrow morning. #Right Knee Pain--related to mechanical fall - all imaging studies performed and negative for fractures, however does have numerous osteoblastic bony lesions from known metastatic disease - Tylenol 1000mg tid scheduled for mild-moderate pain - Ibuprofen 600mg tid prn for mod-severe pain - Volteran gel qid - PT/OT evaluation #Acute metabolic encephalopathy, resolved - reportedly mild on admission, likely in the setting of sepsis, improved with IV fluids and abx ; patient continues to be A&O x4 this morning - abx course for infection completed as above - supportive care and reorientation as needed #Elevated troponin/possible atrial fibrillation versus artifact/heart murmur - initial ECG with a lot of artifact with possible atrial fibrillation but she sounds regular on examination with some ectopy. ECG w/o evidence of ischemic changes. - Initial troponin mildly elevated at 21, 23-likely myocardial demand ischemia in the setting of sepsis ; patient remains asymptomatic this morning, vitals wnl. - TTE: EF 55-60%, mild aortic valve sclerosis, small pericardial effusion without tamponade - EKG prn for chest pain - continue to monitor #Metastatic breast cancer with mets to the bones on chemotherapy with anastrozole and ribociclib/anemia/thrombocytosis - follows with Dr. Kurtz for oncology. With mild leukocytosis and thrombocytosis secondary to infection - these have resolved with infection tx. Anemia likely secondary to chemotherapy - Continue home anastrozole but hold home ribociclib with ongoing acute infection - Follow CBC #Hypothyroidism- - TSH here is low and free T4 is elevated. She was on levothyroxine 137 mcg at home. - Continue levothyroxine dose to 125 mcg p.o. once daily - Follow TSH as an outpatient in 4 to 6 weeks #Right hydronephrosis/right ureter stricture-noted, renal function currently normal. Unclear cause of this but has been present at least since 02/2025 on PET scan - Follow BMP - no urinary sx, having good urine output - Recommend outpatient urology DVT prophylaxis-Lovenox Dispo-Med/surg Possible discharge home tomorrow, depending on improvement of patient's condition - can consider if deemed safe. Short-term rehab placement is pending approval. Admission and Anticipated Discharge Date Admission Date: September 21, 2025 Supervising Physician Co-Signing Physician Notes Resident Physician Supervision Note: I personally examined the patient and verified all guevara points of history and exam, discussed case, and agree with decision making with Dr. Beck Patient seen the patient with the resident team, patient expressed concern of right lower leg swelling. Erythema had receded we performed a Doppler study to rule out DVT which was ruled out. Patient is feeling improvement likely consider patient to be discharged in the next day or 2. Patient does have some increased leg swelling to the right without formal Homans' sign Continue supportive care for resolving sepsis completing antibiotic course for 5 days total blood cultures are negative encouraged discussion as an outpatient if the patient will qualify for DVT prevention given her her higher risk of blood clots associated with her metastatic cancer. I discussed the case with the resident and agree with the findings and plan as documented in the note. Any exceptions or clarifications are listed here: Documented By: Jason Holland MD Subjective Saw patient at bedside today. Patient is feeling overall well, but still has right leg pain and calf tenderness. Upon inspection there was no inflammation noted. Patient denies gout. Reports that she is zakia to walk to the bathroom and is moving her bowels okay. Review of Systems Review of Systems: per HPI Physical Exam Constitutional: WD/WN, vitals as above Eyes: + anicteric sclerae and EOM intact bilat erally Respiratory: normal respiratory effort; no respiratory distress and no labored breathing Cardiovascular: Extremities: + edema (R. leg more swollen on inspection compared to L.) Skin: no rashes, warm and dry Psychiatric: Eye Contact: good eye contact Speech: normal rate/rhythm/volume of speech Thought Process: goal directed thought process and linear/logical thought process Results & Data Results & Data Vital Signs (Past 12 Hours) Vital Signs Temp Pulse Resp BP Pulse Ox O2 Del Method 09/28/25 07:16 36.7 C 80 17 127/63 95 Room Air Laboratory Results Lab Results 09/21/25 09/21/25 09/21/25 Range/Units 11:40 12:40 14:45 WBC 11.77 H (4.8-10.8) K/ul RBC 2.81 L (4.20-5.40) M/uL Hgb 10.1 L (12.0-16.0) g/dL Hct 29.0 L (37.0-47.0) % MCV 103.2 H (80.0-100.0) fL MCH 35.9 H (25.0-34.0) pg MCHC 34.8 (32.0-36.0) g/dL RDW Std Deviation 54.1 H (36.4-46.3) fL RDW Coeff of Lisa 14.3 (11.5-14.5) % Plt Count 415 H (130-400) K/uL MPV 10.8 (9.4-12.4) fL Immature Gran % (Auto) 3.0 % Neut % (Auto) 86.4 % Lymph % (Auto) 8.6 % Moca % (Auto) 1.9 % Eos % (Auto) 0.0 % Baso % (Auto) 0.1 % Neut # (Auto) 10.18 H (1.40-6.50) K/uL Lymph # (Auto) 1.01 L (1.20-3.40) K/uL Moca # (Auto) 0.22 (0.11-0.59) K/uL Eos # (Auto) 0.00 (0.00-0.50) K/uL Baso # (Auto) 0.01 (0.00-0.20) K/uL Immature Gran # (Auto) 0.35 H (0.01-0.20) K/uL Toxic Vacuolation 3+ Dohle Bodies RBC Morphology Polychromasia PT 12.5 H (9.0-12.0) Seconds INR 1.2 H (0.9-1.1) Sodium 136 (136-145) mmol/L Potassium 3.8 (3.5-5.1) mmol/L Chloride 102 (98-107) mmol/L Carbon Dioxide 25 (21-32) mmol/L Anion Gap 9 (3-11) BUN 25 H (6-23) mg/dl Creatinine 0.93 (0.6-1.2) mg/dl Est Cr Clr Drug Dosing 38.9 ml/min eGFR 60.61 BUN/Creatinine Ratio 26.9 H (10-20) Glucose 141 H (70-99(Fasting)) mg/dl Fasting Glucose (70-99) mg/dl Lactate 2.4 H* 1.5 (0.4-2.0) mmol/L Calcium 9.2 (8.6-10.3) mg/dl Magnesium 2.1 (1.7-2.4) mg/dl Total Bilirubin 1.2 H (0.2-1.0) mg/dl AST 32 (13-39) U/L ALT 38 (7-52) U/L Alkaline Phosphatase 41 (34-104) U/L Troponin I High Sens 21.7 H (0-14) pg/ml Total Protein 7.3 (6.0-8.3) gm/dl Albumin 3.8 (3.4-5.0) gm/dl Globulin 3.5 (2.5-4.0) gm/dl Albumin/Globulin Ratio 1.1 (0.9-2) Lipase < 3 L (11-82) U/L Procalcitonin 1.24 H (0-0.5) ng/ml TSH 0.182 L (0.300-4.500) uIu/ml Free T4 1.84 H (0.61-1.60) ng/dl Urine Color Urine Appearance (Clear) Urine pH (4.5-7.5) Ur Specific [place] (1.000-1.030) Urine Protein (Negative) Urine Glucose (UA) (Negative) Urine Ketones (Negative) Urine Blood (Negative) Urine Nitrite (Negative) Urine Bilirubin (Negative) Urine Urobilinogen (Negative) Ur Leukocyte Esterase (Negative) Urine WBC (Auto) (0-5) /hpf Urine RBC (Auto) (0-2) /hpf U Hyaline Cast (Auto) (0-2) /lpf U Epithel Cells (Auto) (0-2) /hpf Urine Bacteria (Auto) (None Seen) Hyaline Casts (None Presnt) /lpf Urine Comment 09/21/25 09/21/25 09/22/25 Range/Units 15:04 17:57 05:38 WBC 6.77 (4.8-10.8) K/ul RBC 2.20 L (4.20-5.40) M/uL Hgb 7.8 L (12.0-16.0) g/dL Hct 23.1 L (37.0-47.0) % MCV 105.0 H (80.0-100.0) fL MCH 35.5 H (25.0-34.0) pg MCHC 33.8 (32.0-36.0) g/dL RDW Std Deviation 54.7 H (36.4-46.3) fL RDW Coeff of Lisa 14.3 (11.5-14.5) % Plt Count 286 (130-400) K/uL MPV 10.7 (9.4-12.4) fL Immature Gran % (Auto) 1.3 % Neut % (Auto) 82.5 % Lymph % (Auto) 12.3 % Moca % (Auto) 3.8 % Eos % (Auto) 0.0 % Baso % (Auto) 0.1 % Neut # (Auto) 5.58 (1.40-6.50) K/uL Lymph # (Auto) 0.83 L (1.20-3.40) K/uL Moca # (Auto) 0.26 (0.11-0.59) K/uL Eos # (Auto) 0.00 (0.00-0.50) K/uL Baso # (Auto) 0.01 (0.00-0.20) K/uL Immature Gran # (Auto) 0.09 (0.01-0.20) K/uL Toxic Vacuolation 1+ Dohle Bodies 1+ RBC Morphology Polychromasia 2+ PT (9.0-12.0) Seconds INR (0.9-1.1) Sodium 132 L (136-145) mmol/L Potassium 3.2 L (3.5-5.1) mmol/L Chloride 104 (98-107) mmol/L Carbon Dioxide 20 L (21-32) mmol/L Anion Gap 8 (3-11) BUN 25 H (6-23) mg/dl Creatinine 0.84 (0.6-1.2) mg/dl Est Cr Clr Drug Dosing 43.1 ml/min eGFR 68.48 BUN/Creatinine Ratio 29.8 H (10-20) Glucose 103 H (70-99(Fasting)) mg/dl Fasting Glucose (70-99) mg/dl Lactate (0.4-2.0) mmol/L Calcium 7.7 L (8.6-10.3) mg/dl Magnesium (1.7-2.4) mg/dl Total Bilirubin 0.8 (0.2-1.0) mg/dl AST 24 (13-39) U/L ALT 28 (7-52) U/L Alkaline Phosphatase 35 (34-104) U/L Troponin I High Sens 21.8 H 23.0 H (0-14) pg/ml Total Protein 5.9 L (6.0-8.3) gm/dl Albumin 2.9 L (3.4-5.0) gm/dl Globulin 3.0 (2.5-4.0) gm/dl Albumin/Globulin Ratio 1.0 (0.9-2) Lipase (11-82) U/L Procalcitonin (0-0.5) ng/ml TSH (0.300-4.500) uIu/ml Free T4 (0.61-1.60) ng/dl Urine Color Dark Yellow Urine Appearance Clear (Clear) Urine pH 6.5 (4.5-7.5) Ur Specific [place] 1.021 (1.000-1.030) Urine Protein 2+ H (Negative) Urine Glucose (UA) Negative (Negative) Urine Ketones Trace H (Negative) Urine Blood Negative (Negative) Urine Nitrite Negative (Negative) Urine Bilirubin Negative (Negative) Urine Urobilinogen Negative (Negative) Ur Leukocyte Esterase 1+ H (Negative) Urine WBC (Auto) 0-5 (0-5) /hpf Urine RBC (Auto) 0-2 (0-2) /hpf U Hyaline Cast (Auto) 0-2 (0-2) /lpf U Epithel Cells (Auto) 0-2 (0-2) /hpf Urine Bacteria (Auto) None Seen (None Seen) Hyaline Casts Present A (None Presnt) /lpf Urine Comment 09/23/25 09/24/25 09/25/25 Range/Units 05:33 05:52 05:47 WBC 5.35 5.64 5.97 (4.8-10.8) K/ul RBC 2.29 L 2.41 L 2.34 L (4.20-5.40) M/uL Hgb 8.0 L 8.6 L 8.3 L (12.0-16.0) g/dL Hct 23.7 L 25.0 L 24.0 L (37.0-47.0) % MCV 103.5 H 103.7 H 102.6 H (80.0-100.0) fL MCH 34.9 H 35.7 H 35.5 H (25.0-34.0) pg MCHC 33.8 34.4 34.6 (32.0-36.0) g/dL RDW Std Deviation 53.1 H 52.8 H 51.4 H (36.4-46.3) fL RDW Coeff of Lisa 14.1 13.8 13.6 (11.5-14.5) % Plt Count 276 296 280 (130-400) K/uL MPV 10.5 10.7 10.8 (9.4-12.4) fL Immature Gran % (Auto) 0.9 0.7 0.8 % Neut % (Auto) 76.9 76.9 73.2 % Lymph % (Auto) 18.3 17.2 17.8 % Moca % (Auto) 3.7 5.0 7.4 % Eos % (Auto) 0.2 0.0 0.5 % Baso % (Auto) 0.0 0.2 0.3 % Neut # (Auto) 4.11 4.34 4.37 (1.40-6.50) K/uL Lymph # (Auto) 0.98 L 0.97 L 1.06 L (1.20-3.40) K/uL Moca # (Auto) 0.20 0.28 0.44 (0.11-0.59) K/uL Eos # (Auto) 0.01 0.00 0.03 (0.00-0.50) K/uL Baso # (Auto) 0.00 0.01 0.02 (0.00-0.20) K/uL Immature Gran # (Auto) 0.05 0.04 0.05 (0.01-0.20) K/uL Toxic Vacuolation Dohle Bodies RBC Morphology Polychromasia 2+ PT (9.0-12.0) Seconds INR (0.9-1.1) Sodium 135 L 136 137 (136-145) mmol/L Potassium 3.7 3.7 3.7 (3.5-5.1) mmol/L Chloride 107 105 106 (98-107) mmol/L Carbon Dioxide 20 L 23 23 (21-32) mmol/L Anion Gap 8 8 8 (3-11) BUN 23 18 20 (6-23) mg/dl Creatinine 0.71 0.62 0.64 (0.6-1.2) mg/dl Est Cr Clr Drug Dosing 50.9 58.3 56.5 ml/min eGFR 83.79 87.76 87.09 BUN/Creatinine Ratio (10-20) Glucose (70-99(Fasting)) mg/dl Fasting Glucose 113 H 132 H 103 H (70-99) mg/dl Lactate (0.4-2.0) mmol/L Calcium 8.2 L 8.5 L 8.4 L (8.6-10.3) mg/dl Magnesium (1.7-2.4) mg/dl Total Bilirubin (0.2-1.0) mg/dl AST (13-39) U/L ALT (7-52) U/L Alkaline Phosphatase (34-104) U/L Troponin I High Sens (0-14) pg/ml Total Protein (6.0-8.3) gm/dl Albumin (3.4-5.0) gm/dl Globulin (2.5-4.0) gm/dl Albumin/Globulin Ratio (0.9-2) Lipase (11-82) U/L Procalcitonin (0-0.5) ng/ml TSH (0.300-4.500) uIu/ml Free T4 (0.61-1.60) ng/dl Urine Color Urine Appearance (Clear) Urine pH (4.5-7.5) Ur Specific [place] (1.000-1.030) Urine Protein (Negative) Urine Glucose (UA) (Negative) Urine Ketones (Negative) Urine Blood (Negative) Urine Nitrite (Negative) Urine Bilirubin (Negative) Urine Urobilinogen (Negative) Ur Leukocyte Esterase (Negative) Urine WBC (Auto) (0-5) /hpf Urine RBC (Auto) (0-2) /hpf U Hyaline Cast (Auto) (0-2) /lpf U Epithel Cells (Auto) (0-2) /hpf Urine Bacteria (Auto) (None Seen) Hyaline Casts (None Presnt) /lpf Urine Comment 09/26/25 09/27/25 Range/Units 05:08 06:31 WBC 5.53 5.23 (4.8-10.8) K/ul RBC 2.32 L 2.31 L (4.20-5.40) M/uL Hgb 7.9 L 7.9 L (12.0-16.0) g/dL Hct 23.6 L 24.1 L (37.0-47.0) % MCV 101.7 H 104.3 H (80.0-100.0) fL MCH 34.1 H 34.2 H (25.0-34.0) pg MCHC 33.5 32.8 (32.0-36.0) g/dL RDW Std Deviation 51.5 H 52.2 H (36.4-46.3) fL RDW Coeff of Lisa 14.0 13.8 (11.5-14.5) % Plt Count 289 309 (130-400) K/uL MPV 10.2 10.1 (9.4-12.4) fL Immature Gran % (Auto) 1.1 % Neut % (Auto) 62.2 % Lymph % (Auto) 26.0 % [place]oca % (Auto) 8.7 % Eos % (Auto) 1.6 % Baso % (Auto) 0.4 % Neut # (Auto) 3.44 (1.40-6.50) K/uL Lymph # (Auto) 1.44 (1.20-3.40) K/uL Moca # (Auto) 0.48 (0.11-0.59) K/uL Eos # (Auto) 0.09 (0.00-0.50) K/uL Baso # (Auto) 0.02 (0.00-0.20) K/uL Immature Gran # (Auto) 0.06 (0.01-0.20) K/uL Toxic Vacuolation Dohle Bodies RBC Morphology Unremarkable Polychromasia PT (9.0-12.0) Seconds INR (0.9-1.1) Sodium 138 139 (136-145) mmol/L Potassium 3.9 3.8 (3.5-5.1) mmol/L Chloride 108 H 108 H (98-107) mmol/L Carbon Dioxide 23 23 (21-32) mmol/L Anion Gap 7 8 (3-11) BUN 25 H 26 H (6-23) mg/dl Creatinine 0.83 0.69 (0.6-1.2) mg/dl Est Cr Clr Drug Dosing 43.6 52.4 ml/min eGFR 69.47 85.52 BUN/Creatinine Ratio 37.7 H (10-20) Glucose 93 (70-99(Fasting)) mg/dl Fasting Glucose 109 H (70-99) mg/dl Lactate (0.4-2.0) mmol/L Calcium 8.5 L 8.6 (8.6-10.3) mg/dl Magnesium (1.7-2.4) mg/dl Total Bilirubin (0.2-1.0) mg/dl AST (13-39) U/L ALT (7-52) U/L Alkaline Phosphatase (34-104) U/L Troponin I High Sens (0-14) pg/ml Total Protein (6.0-8.3) gm/dl Albumin (3.4-5.0) gm/dl Globulin (2.5-4.0) gm/dl Albumin/Globulin Ratio (0.9-2) Lipase (11-82) U/L Procalcitonin (0-0.5) ng/ml TSH (0.300-4.500) uIu/ml Free T4 (0.61-1.60) ng/dl Urine Color Urine Appearance (Clear) Urine pH (4.5-7.5) Ur Specific [place] (1.000-1.030) Urine Protein (Negative) Urine Glucose (UA) (Negative) Urine Ketones (Negative) Urine Blood (Negative) Urine Nitrite (Negative) Urine Bilirubin (Negative) Urine Urobilinogen (Negative) Ur Leukocyte Esterase (Negative) Urine WBC (Auto) (0-5) /hpf Urine RBC (Auto) (0-2) /hpf U Hyaline Cast (Auto) (0-2) /lpf U Epithel Cells (Auto) (0-2) /hpf Urine Bacteria (Auto) (None Seen) Hyaline Casts (None Presnt) /lpf Urine Comment Resident Activity Tracking Resident Involvement: Resident Care Provided Care Provided: Adult Hospital Medicine
--- NOTE | 2025-09-28 13:33 | Ultrasound Report ---
ULTRASOUND RIGHT LOWER EXTREMITY VENOUS CLINICAL HISTORY: Right leg pain. COMPARISON STUDY: No priors TECHNIQUE: Real-time, grayscale, and color Doppler sonography of the deep veins of the right lower ex tremity was performed from the inguinal crease to the calf. Compression and augmentation were utilize d. FINDINGS: There is no sonographic evidence of deep venous thrombosis identified in the right lower ex tremity. The common femoral, superficial femoral, and popliteal veins are patent and normally ceasar sible. The greater saphenous vein and the profunda femoris vein at the junction with the common femor al vein are clear. The visualized calf veins are patent. There is a mildly enlarged, round, hypoechoi c, and vascular lymph node in the right groin which measures 2.2 x 1.4 x 2.2 cm. IMPRESSION: 1. There is no sonographic evidence of deep venous thrombosis identified in the right lower extremity . 2. There is a mildly enlarged, round, hypoechoic, and hypervascular lymph in the right groin. This is pathologically indeterminate and may be reactive. Clinical correlation will be required. A follow-up ultrasound in 1 to 2 months time is recommended for reassessment. ACT 112: Negative or not required by law. Electronically signed by: Marvel Osborne M.D. 09/28/2025 1:31 PM
--- NOTE | 2025-09-28 17:27 | Billing Data ---
Date of Service September 28, 2025 Coding Level of Care Code 95869 SUB INP/OBS CARE
[2025-09-29 07:06] VITALS: BP 144/71; PULSE 76; RESP 16; TEMP 98.4; O2SAT 95
--- NOTE | 2025-09-29 15:41 | Discharge Summary ---
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 Patient reports she was sleeping on her couch and when she went to get up this morning, her right leg was painful and would not support her weight. She felt generally weak and her right leg is painful. She was not able to get off the floor and tried to scoot her way over to call someone for help but could not reach the phone. She does not recall hitting her head. She was a little bit confused in the ED and the day prior as per the son, but head imaging was negative for anything acute. She reports having shaking chills that started yesterday evening. She was found to have a right leg cellulitis and had mild tachycardia, mild leukocytosis, and mild tachypnea with soft blood pressures. Lactate was mildly elevated and improved with IV fluids. She was given cefepime, acetaminophen, and normal saline. She will be admitted for sepsis and right lower extremity cellulitis. Admission Exam Per Admitting Provider Physical Exam Constitutional: WD/WN, vitals as above Eyes: PERRL, conjunctivae normal, anicteric sclerae ENMT: external ear and nose normal, oropharynx normal Neck: trachea midline, no thyromegaly Respiratory: normal respiratory effort, lungs clear to auscultation Cardiovascular: Rate/Rhythm: regular rate and regular rhythm (With occasional ectopy) Heart Sounds: + murmur (3/6 harsh systolic murmur heard best at the RUSB) Extremities: no edema Chest (Breasts): Chest: normal inspection of chest Gastrointestinal (Abdomen): normal bowel sounds, soft, nontender, no hepatosplenomegaly Musculoskeletal: Extremities: extremities normal to inspection; no cyanosis and no clubbing Skin: + erythema (Right anterior entire lower leg with erythema, warmth to the touch) Neurologic: moves all extremities and awake; no focal motor deficits Psychiatric: A+Ox3, euthymic affect Lymphatic: no lymphedema Principal Diagnosis Fall, right leg cellulitis Discharge Exam Constitutional WD/WN, vitals as above Eyes + anicteric sclerae and EOM intact bilaterally Respiratory normal respiratory effort; no respiratory distress and no labored breathing Cardiovascular Rate/Rhythm: regular rate and regular rhythm Heart Sounds: normal S1, normal S2 and + murmur (systolic) Extremities: + edema (R. leg more swollen on inspection compared to L.) Gastrointestinal (Abdomen) Percussion/Palpation: abdomen soft; abdomen nontender Skin no rashes, warm and dry Psychiatric Eye Contact: good eye contact Speech: normal rate/rhythm/volume of speech Thought Process: goal directed thought process and linear/logical thought process Discharge Data Allergies Allergy/AdvReac Type Severity Reaction Status Date / Time Sulfa (Sulfonamide Allergy Unknown Unknown Verified 12/18/24 10:50 Antibiotics) Consultations 09/21/25 15:10 ED Decision to Admit Stat Ordered Studies 09/21/25 12:01 CT head/brain wo con Stat 09/21/25 12:02 CT cervical spine wo con Stat 09/28/25 11:36 US venous duplex leg [US venous doppler LE RT] Stat Hospital Course (1) Cellulitis of right leg: (2) Sepsis: (3) Acute metabolic encephalopathy: (4) Fall: Plan This patient is an 85-year-old female with a history of metastatic breast cancer with mets to the bones on chemotherapy with anastrozole/ribociclib, hypothyroidism, right proximal ureter stricture with right severe hydronephrosis, who presents after being found down by her family members. Patient reports she was sleeping on her couch and when she went to get up this morning, her right leg was painful and would not support her weight. She felt generally weak and her right leg is painful. She was not able to get off the floor and tried to scoot her way over to call someone for help but could not reach the phone. She does not recall hitting her head. She was a little bit confused in the ED (09/21/25) and the day prior as per the son, but head imaging was negative for anything acute. She reports having shaking chills that started yesterday evening. She was found to have a right leg cellulitis and had mild tachycardia, mild leukocytosis, and mild tachypnea with soft blood pressures. Lactate was mildly elevated and improved with IV fluids. She was given cefepime, acetaminophen, and normal saline. She will be admitted for sepsis and right lower extremity cellulitis. #right lower extremity cellulitis, resolving #sepsis, resolved - doing well this morning (09/29/25), right knee still swollen compared to left, however no obvious signs of worsening infection - WBC 5.23 on 09/27/25 , continues to be hemodynamically stable and afebrile - abx course with cefazolin 1g tid for MSSA coverage was completed for total of 5 day course. - blood cultures NGTD - elevate right extremity when possible - CBC, BMP qAM - Ordered Venous doppler for R. LE on 09/28/25. Came back with no sign of DVT. However, mildly enlarged, round, hypoechoic, and hypervascular lymph in the right groin. This is pathologically indeterminate and may be reactive. Clinical correlation will be required. A follow-up ultrasound in 1 to 2 months time is recommended for reassessment. - PT and OT has cleared patient to go home (09/28/25). - For right leg swelling recommend compression stocking on R. leg and elevating. #Right Knee Pain--related to mechanical fall - all imaging studies performed and negative for fractures, however does have numerous osteoblastic bony lesions from known metastatic disease - Tylenol 1000mg tid scheduled for mild-moderate pain - Ibuprofen 600mg tid prn for mod-severe pain - Volteran gel qid #Acute metabolic encephalopathy, resolved - reportedly mild on admission, likely in the setting of sepsis, improved with IV fluids and abx ; patient continues to be A&O x4 this morning - abx course for infection completed as above - supportive care and reorientation as needed #Elevated troponin/possible atrial fibrillation versus artifact/heart murmur - initial ECG (09/21/25) with a lot of artifact with possible atrial fibrillation but she sounds regular on examination with systolic murmur. ECG w/o evidence of ischemic changes. - Initial troponin mildly elevated at 21, 23-likely myocardial demand ischemia in the setting of sepsis ; patient remains asymptomatic this morning, vitals wnl. - TTE: EF 55-60%, mild aortic valve sclerosis, small pericardial effusion without tamponade - EKG prn for chest pain - continue to monitor #Metastatic breast cancer with mets to the bones on chemotherapy with anastrozole and ribociclib/anemia/thrombocytosis - follows with Dr. Kurtz for oncology. With mild leukocytosis and thrombocytosis secondary to infection - these have resolved with infection tx. Anemia likely secondary to chemotherapy - Continue home anastrozole but hold home ribociclib with ongoing acute infection - Follow CBC #Hypothyroidism- - TSH here is low and free T4 is elevated. She was on levothyroxine 137 mcg at home. - Continue levothyroxine dose to 125 mcg p.o. once daily - Follow TSH as an outpatient in 4 to 6 weeks #Right hydronephrosis/right ureter stricture-noted, renal function currently normal. Unclear cause of this but has been present at least since 02/2025 on PET scan - Follow BMP - no urinary sx, having good urine output - Recommend outpatient urology DVT prophylaxis-Lovenox Dispo-Med/surg Possible discharge home tomorrow, depending on improvement of patient's condition - can consider if deemed safe. Short-term rehab placement is pending approval. Total Time Total Time Spent Total Time Spent (In Minutes): as per attending Discharge Plan Discharge Items Patient Disposition: Home - Home Health Services Reason For Visit: SEPSIS,RLE CELLULITIS Discharge Diagnosis: Sepsis, Ground level fall, Cellulitis Condition on Discharge: Fair Activity: Resume your previous activity Non-emergency contact: Primary Care Provider Call non-emergency contact if: your symptoms worsen, your pain is not controlled, your temperature is above 101.5 and your wound has increased redness Follow-up/Referrals: Jasiel Osman [Primary Care Provider] - (Facility is gonna call with an appointment.) Diet: Regular Addtl Attending Provider Instructions: You were admitted into the hospital for a ground level fall which we also found a skin infection called "cellulitis" on your right leg. We provided IV fluid and antibiotics for the cellulitis. For the fall we also had imaging done of the head, spine, chest, and knee. We did not find any bleeding in the head, or any acute fractures. We also did an ultrasound of your right leg, since you were saying your right calf was painful, to look for any clots in your leg. Fortunately we did not see any clots in your leg. During your stay we also consulted physical and occupational therapy to help you gain back strength and balance so you are less likely to fall again. To help with swelling in your right leg, you can wear a compression stocking and elevate your leg. Please follow up with your PCP within a week or two of discharging from the hospital to monitor your symptoms and your right leg and discuss possible physical therapy options. When you ere admitted into the ER, your thyroid hormones showed that your thyroid medications was not helping properly so we decreased the dose from 137mg to 125mg. Please let your PCP know about this change. New Medication - Levothyroxine 125mg. Take 1 tablet daily. CONTACT YOUR PRIMARY CARE PROVIDER if you experience any of the following: Worsening of symptoms Fever, chills, or fatigue Difficulty following your treatment plan, or difficulty taking medications CALL 911 OR GO TO THE EMERGENCY DEPARTMENT if you experience any of the following: Sudden, severe abdominal pain or nausea/vomiting Severe chest pain, or chest pain that radiates (moves) to your jaw or arm Sudden, severe shortness of breath or difficulty breathing Thank you for allowing us to participate in your care. Pending Studies at Discharge: No Stand-Alone Forms: My [facility], Smoking Cessation Medications and DC Order Prescriptions: New levothyroxine 125 mcg capsule 125 mcg PO DAILY 30 Days Qty: 30 1RF Continued (DME) Luis Manjarrez [facility] [place] .MED[place]PPLY Qty: 1 0RF Rx Instructions: As directed multivitamin Tablet 1 tab PO QAM cyanocobalamin (vitamin B-12) [Vitamin B-12] 1,000 mcg Tablet 1,000 mcg PO QAM cholecalciferol (vitamin D3) [Vitamin D3] 25 mcg (1,000 unit) Tablet 25 mcg PO QAM Probiotic Blend 2 billion cell-50 mg Capsule 1 cap PO QAM anastrozole 1 mg tablet 1 mg PO DAILY calcium carbonate 500 mg calcium (1,250 mg) tablet 500 mg PO BID Kisqali 600 mg/day (200 mg x 3) tablet 600 mg PO DIRECTED Rx Instructions: 600MG DAILY 3 weeks on 1 week off Discontinued levothyroxine 137 mcg Tablet 137 mcg PO QAM Discharge Orders: Discharge Order (Routine); Ordered 09/29/25 Ordered By: Bertin Beck Admission Data Admit Date/Time: 09/21/25 16:40 Attending Provider: Jason Holland Admit Provider: Sobia Treadwell Primary Care Provider: Jasiel Osman Other Providers: German Lovell; [facility] [place]; Sobia Treadwell; Issac Franks [facility] Other Interventions: Discharge Summary Assessment (RN) Last Done: 09/29/25 10:55 Supervising Physician Co-Signing Physician Notes Resident Physician Supervision Note: I personally examined the patient and verified all guevara points of history and exam, discussed case, and agree with decision making with Dr. Beck Patient was seen the day of discharge her leg swelling had improved she had no DVT her cellulitis is also improved. Patient be discharged home with outpatient follow-up recommending elevation and a LUIS hose to reduce her swelling of her leg. I discussed the case with the resident and agree with the findings and plan as documented in the note. Any exceptions or clarifications are listed here: Documented By: Jason Holland MD Resident Activity Tracking Resident Involvement: Resident Care Provided Care Provided: Adult Hospital Medicine
--- NOTE | 2025-09-30 07:36 | Billing Data ---
Date of Service September 30, 2025 Coding Level of Care Code 83053 IN/OBS DISCH 30 MIN/LESS
== END 2025-09-29 13:02 | disposition home health service (06) | DRG 871 ==
LOC: ED 11:26 → SUATTDRO 16:40 → 4W 16:40 → 3N 09-26 22:46